=== PATIENT | male | born 1945 | race Caucasian/White ===

== ENCOUNTER 2018-06-15 14:42 | Inpatient (IN) ==
[2018-06-15] MEDS ORDERED: MORPHINE 4 MG/1 ML VIAL IV STA (15:39)
[2018-06-15] MEDS ORDERED: FUROSEMIDE 100 MG/10 ML VIAL IV STA (15:39)
[2018-06-15] MEDS ORDERED: CLINDAMYCIN INJ 600 MG in PREMIX 1 EACH IV STA (15:39)
[2018-06-15] MEDS ORDERED: methylPREDNISolone SOD SUC 125 MG/2 ML VIAL IV STA (15:39)
[2018-06-15] MEDS ORDERED: ONDANSETRON 4 MG/2 ML VIAL IV STA (15:39)
[2018-06-15] MEDS ORDERED: ALBUTEROL NEB SOLN 5 MG/ML 20 ML/BOTTLE RESP TX SCH (16:00)
[2018-06-15 16:06] LABS: ABG Base Excess -0.4 MMOL/L (-2.5-2.5); ABG Oxygen Saturation 97.4 % (95-100); ABG PCO2 38.6 MM HG (35-48); ABG PH 7.403 (7.35-7.45)
[2018-06-15 16:25] LABS: Basophils % 0.4 % (0.0-0.8); Eosinophils % 10.6 % (0.00-10.9); Hemoglobin 12.6 GM/DL (14.0-18.0); Immature Granulocytes % 0.3 %; Immature Granulocytes Absolute 0.03 #; Lymphocytes # 0.9 10*3/uL (1.4-4.0); Lymphocytes % 9.6 % (21.2-54.2); Mean Corpuscular HGB Conc 30.7 GM/DL (32-36); Mean Corpuscular Hemoglobin 31 PG (27-34); Mean Platelet Volume 9.3 FL (9.6-12.0); Monocytes # 0.9 10*3/uL (0.11-0.8); Neutrophils # 6.6 10*3/uL (1.4-7.4); Neutrophils % 70.1 % (38.7-73.9); Platelet Count 324 T/CUMM (130-400); Red Blood Count 4.06 MC/CUMM (3.8-5.5); Red Cell Distribution Width 14.3 % (9.3-17.3); White Blood Count 9.5 T/CUMM (4-12)
[2018-06-15 16:44] LABS: Alanine Aminotransferase 50 U/L (16-61); Albumin 3.1 G/DL (3.4-5.0); Alkaline Phosphatase 66 U/L (45-117); Aspartate Amino Transferase 53 U/L (0-37); Blood Urea Nitrogen 13 MG/DL (7-18); Calcium 8.4 MG/DL (8.5-10.1); Glucose 114 MG/DL (74-106); Osmolality,Calculated 281.3 MOS/KG (273-304); Potassium 3.8 MMOL/L (3.5-5.1); Sodium 141 MMOL/L (136-145); Total Protein 8.2 G/DL (6.4-8.3); Troponin I < 0.015 NG/ML (0.00-0.045)
[2018-06-15 16:47] LABS: PT Patient Result 10.9 SECS
[2018-06-15] MEDS ORDERED: guaiFENesin/DM ER 600-30 MG TABLET PO PRN (18:05)
[2018-06-15] MEDS ORDERED: NITROGLYCERIN SL 0.4 MG TABLET SL PRN (18:10)
[2018-06-15] MEDS: ALBUTEROL/IPRATROPIUM 3 ML NEB RESP TX SCH (19:55)
[2018-06-15] MEDS: PERMETHRIN 5% CREAM 60 GM TUBE TOP SCH (20:36)
[2018-06-15] MEDS: PERMETHRIN 1% LOTION 59 ML BOTTLE TOP SCH (20:36)
[2018-06-15] MEDS: ISOSORBIDE MONONITRATE 30 MG TABLET PO SCH (20:37)
[2018-06-15] MEDS: ENOXAPARIN 40 MG/0.4 ML SYRINGE SUBCUT SCH (20:39)
[2018-06-15] MEDS: MORPHINE 4 MG/1 ML VIAL IV PRN (20:58)
[2018-06-15] MEDS: ceFAZolin 1,000 MG in SYRINGE 1 EACH IV SCH (20:58)
[2018-06-15] MEDS ORDERED: OSELTAMIVIR 75 MG CAPSULE PO SCH (21:00)
[2018-06-16] MEDS: ALBUTEROL/IPRATROPIUM 3 ML NEB RESP TX SCH ×4 (00:58→20:32)
[2018-06-16] MEDS: ceFAZolin 1,000 MG in SYRINGE 1 EACH IV SCH ×3 (03:55→20:45)
[2018-06-16 06:00] LABS: Basophils % 0.1 % (0.0-0.8); Hematocrit 38.1 VOL% (42.0-52.0); Hemoglobin 11.7 GM/DL (14.0-18.0); Immature Granulocytes % 0.4 %; Immature Granulocytes Absolute 0.03 #; Lymphocytes # 0.5 10*3/uL (1.4-4.0); Lymphocytes % 6.7 % (21.2-54.2); Mean Corpuscular HGB Conc 30.7 GM/DL (32-36); Mean Corpuscular Hemoglobin 31 PG (27-34); Mean Corpuscular Volume 100.5 FL (87-102); Mean Platelet Volume 9.4 FL (9.6-12.0); Monocytes # 0.2 10*3/uL (0.11-0.8); Neutrophils # 6.8 10*3/uL (1.4-7.4); Neutrophils % 89.8 % (38.7-73.9); Platelet Count 292 T/CUMM (130-400); Red Blood Count 3.79 MC/CUMM (3.8-5.5); Red Cell Distribution Width 14.1 % (9.3-17.3); White Blood Count 7.6 T/CUMM (4-12)
[2018-06-16 06:21] LABS: Blood Urea Nitrogen 15 MG/DL (7-18); Glucose 210 MG/DL (74-106); Potassium 4.2 MMOL/L (3.5-5.1); Sodium 136 MMOL/L (136-145); Troponin I < 0.015 NG/ML (0.00-0.045)
[2018-06-16 06:27] LABS: Risk Ratio 3.05; Thyroid Stimulating Hormone 1.12 uIU/ml (0.358-3.74); VLDL CHOLESTEROL 16.4 MG/DL
[2018-06-16] MEDS ORDERED: FUROSEMIDE 40 MG/4 ML VIAL IV SCH (08:00)
[2018-06-16] MEDS ORDERED: amLODIPine 10 MG TABLET PO SCH (09:00)
[2018-06-16] MEDS: ISOSORBIDE MONONITRATE 30 MG TABLET PO SCH ×2 (10:01→20:45)
[2018-06-16] MEDS: PERMETHRIN 5% CREAM 60 GM TUBE TOP SCH (10:01)
[2018-06-16] MEDS: ASPIRIN EC 81 MG TABLET PO SCH (10:01)
[2018-06-16] MEDS: MULTIVITAMIN (CENTRUM) TABLET PO SCH (10:01)
[2018-06-16] MEDS: POTASSIUM CHLORIDE 8 MEQ CAPSULE PO SCH (10:02)
[2018-06-16] MEDS: TAMSULOSIN 0.4 MG CAPSULE PO SCH (10:02)
[2018-06-16] MEDS: PERMETHRIN 1% LOTION 59 ML BOTTLE TOP SCH (10:03)
[2018-06-16] MEDS ORDERED: DEXTROSE 50% 25 GM/50 ML VIAL IV PRN (11:23)
[2018-06-16] MEDS ORDERED: GLUCAGON 1 MG VIAL IM PRN (11:23)
[2018-06-16] MEDS: INSULIN LISPRO 100 UNIT/ML SUBCUT SCH ×3 (12:32→20:46)
[2018-06-16] MEDS: SPIRONOLACTONE 25 MG TABLET PO SCH (15:21)
[2018-06-16] MEDS: ENOXAPARIN 40 MG/0.4 ML SYRINGE SUBCUT SCH (20:45)
[2018-06-17] MEDS: ALBUTEROL/IPRATROPIUM 3 ML NEB RESP TX SCH ×4 (00:37→19:45)
[2018-06-17] MEDS: MORPHINE 4 MG/1 ML VIAL IV PRN ×3 (01:31→23:15)
[2018-06-17 04:51] LABS: Basophils % 0.3 % (0.0-0.8); Eosinophils # 0.2 10*3/uL (0.0-0.87); Eosinophils % 2.3 % (0.00-10.9); Hematocrit 35.7 VOL% (42.0-52.0); Hemoglobin 11.3 GM/DL (14.0-18.0); Immature Granulocytes % 0.4 %; Immature Granulocytes Absolute 0.04 #; Lymphocytes # 1.1 10*3/uL (1.4-4.0); Lymphocytes % 11.9 % (21.2-54.2); Mean Corpuscular HGB Conc 31.7 GM/DL (32-36); Mean Corpuscular Hemoglobin 32 PG (27-34); Mean Corpuscular Volume 100.3 FL (87-102); Mean Platelet Volume 9.5 FL (9.6-12.0); Monocytes # 0.9 10*3/uL (0.11-0.8); Neutrophils # 6.7 10*3/uL (1.4-7.4); Neutrophils % 75.1 % (38.7-73.9); Platelet Count 282 T/CUMM (130-400); Red Blood Count 3.56 MC/CUMM (3.8-5.5); Red Cell Distribution Width 14.1 % (9.3-17.3)
[2018-06-17] MEDS: ceFAZolin 1,000 MG in SYRINGE 1 EACH IV SCH ×3 (05:03→20:59)
[2018-06-17 05:17] LABS: Calcium 8.2 MG/DL (8.5-10.1); Osmolality,Calculated 284.4 MOS/KG (273-304); Potassium 3.3 MMOL/L (3.5-5.1)
[2018-06-17] MEDS: INSULIN LISPRO 100 UNIT/ML SUBCUT SCH ×4 (08:47→21:00)
[2018-06-17] MEDS: FUROSEMIDE 40 MG/4 ML VIAL IV SCH (09:09)
[2018-06-17] MEDS: ASPIRIN EC 81 MG TABLET PO SCH (09:11)
[2018-06-17] MEDS: TAMSULOSIN 0.4 MG CAPSULE PO SCH (09:11)
[2018-06-17] MEDS: ISOSORBIDE MONONITRATE 30 MG TABLET PO SCH ×2 (09:11→21:00)
[2018-06-17] MEDS: SPIRONOLACTONE 25 MG TABLET PO SCH (09:11)
[2018-06-17] MEDS: MULTIVITAMIN (CENTRUM) TABLET PO SCH (09:11)
[2018-06-17] MEDS: POTASSIUM CHLORIDE 8 MEQ CAPSULE PO SCH (09:12)
[2018-06-17] MEDS: LISINOPRIL/HCTZ 10-12.5 MG TABLET PO SCH (09:13)
[2018-06-17] MEDS: ENOXAPARIN 40 MG/0.4 ML SYRINGE SUBCUT SCH (20:59)
[2018-06-17 21:58] LABS: Apearance,Urine CLEAR (Clear); Bacteria,Urine Occasional /HPF (Few); Bilirubin,Urine Negative (Negative); Blood, Urine Small mg/dL (Negative); Glucose,Urine (UA) Negative (Negative); Ketones,Urine Negative (Negative); Mucus,Urine Occasional /LPF (Occasional); Nitrite,Urine Negative (Negative); Protein,Urine Negative; RBC,Urine 1 /HPF (0-4); Uric Acid Crystals,Urine Occasional /HPF (<1); Urine Color Yellow (Yellow); Urine Specific Gravity 1.014 (1.001-1.035); Urine Urobilinogen < 2.0 EU/DL (0.2-1.0); WBC,Urine 1 /HPF (0-6)
[2018-06-18] MEDS: diphenhydrAMINE CAP 25 MG CAPSULE PO PRN ×2 (00:27→09:05)
[2018-06-18] MEDS: ALBUTEROL/IPRATROPIUM 3 ML NEB RESP TX SCH ×4 (00:58→19:19)
[2018-06-18] MEDS: ceFAZolin 1,000 MG in SYRINGE 1 EACH IV SCH ×3 (04:55→22:11)
[2018-06-18 05:53] LABS: Basophils # 0.1 10*3/uL (0.0-0.2); Basophils % 0.6 % (0.0-0.8); Eosinophils # 0.9 10*3/uL (0.0-0.87); Eosinophils % 10.9 % (0.00-10.9); Hematocrit 43.3 VOL% (42.0-52.0); Hemoglobin 13.2 GM/DL (14.0-18.0); Immature Granulocytes % 0.4 %; Immature Granulocytes Absolute 0.03 #; Lymphocytes # 1.3 10*3/uL (1.4-4.0); Lymphocytes % 14.8 % (21.2-54.2); Mean Corpuscular HGB Conc 30.5 GM/DL (32-36); Mean Corpuscular Hemoglobin 31 PG (27-34); Mean Corpuscular Volume 100.9 FL (87-102); Mean Platelet Volume 9.4 FL (9.6-12.0); Monocytes % 11.2 % (1.7-12.7); Neutrophils # 5.3 10*3/uL (1.4-7.4); Neutrophils % 62.1 % (38.7-73.9); Platelet Count 323 T/CUMM (130-400); Red Blood Count 4.29 MC/CUMM (3.8-5.5); Red Cell Distribution Width 13.9 % (9.3-17.3); White Blood Count 8.5 T/CUMM (4-12)
[2018-06-18 06:08] LABS: Calcium 8.5 MG/DL (8.5-10.1); Osmolality,Calculated 278.8 MOS/KG (273-304); Potassium 3.3 MMOL/L (3.5-5.1)
[2018-06-18] MEDS: INSULIN LISPRO 100 UNIT/ML SUBCUT SCH ×4 (07:42→22:12)
[2018-06-18] MEDS ORDERED: POTASSIUM CHLORIDE 20 MEQ TABLET PO SCH (09:00)
[2018-06-18] MEDS: MORPHINE 4 MG/1 ML VIAL IV PRN ×2 (09:01→13:24)
[2018-06-18] MEDS: LISINOPRIL/HCTZ 10-12.5 MG TABLET PO SCH (09:04)
[2018-06-18] MEDS: SPIRONOLACTONE 25 MG TABLET PO SCH (09:04)
[2018-06-18] MEDS: ISOSORBIDE MONONITRATE 30 MG TABLET PO SCH ×2 (09:04→22:12)
[2018-06-18] MEDS: ASPIRIN EC 81 MG TABLET PO SCH (09:04)
[2018-06-18] MEDS: POTASSIUM CHLORIDE 8 MEQ CAPSULE PO SCH (09:04)
[2018-06-18] MEDS: TAMSULOSIN 0.4 MG CAPSULE PO SCH (09:04)
[2018-06-18] MEDS: MULTIVITAMIN (CENTRUM) TABLET PO SCH (09:04)
[2018-06-18] MEDS: FUROSEMIDE 40 MG/4 ML VIAL IV SCH (09:11)
[2018-06-18] MEDS: POTASSIUM CHLORIDE 20 MEQ TABLET PO SCH (12:07)
[2018-06-18] MEDS: SKIN HEALING OINT (AQUAPHOR) 50 GM TUBE TOP SCH ×2 (12:07→22:11)
[2018-06-18] MEDS: diphenhydrAMINE 2% CREAM 28 GM TUBE TOP SCH ×2 (16:01→22:11)
[2018-06-18] MEDS: ENOXAPARIN 40 MG/0.4 ML SYRINGE SUBCUT SCH (22:12)
[2018-06-19] MEDS: ALBUTEROL/IPRATROPIUM 3 ML NEB RESP TX SCH ×3 (00:31→14:05)
[2018-06-19] MEDS: ceFAZolin 1,000 MG in SYRINGE 1 EACH IV SCH ×2 (04:28→11:58)
[2018-06-19] MEDS: MORPHINE 4 MG/1 ML VIAL IV PRN (05:00)
[2018-06-19] MEDS: diphenhydrAMINE CAP 25 MG CAPSULE PO PRN (05:05)
[2018-06-19 05:59] LABS: Basophils # 0.1 10*3/uL (0.0-0.2); Basophils % 0.8 % (0.0-0.8); Eosinophils # 0.9 10*3/uL (0.0-0.87); Hematocrit 39.8 VOL% (42.0-52.0); Hemoglobin 12.4 GM/DL (14.0-18.0); Immature Granulocytes % 0.5 %; Immature Granulocytes Absolute 0.03 #; Lymphocytes % 15.3 % (21.2-54.2); Mean Corpuscular HGB Conc 31.2 GM/DL (32-36); Mean Corpuscular Hemoglobin 32 PG (27-34); Mean Platelet Volume 9.8 FL (9.6-12.0); Monocytes # 0.8 10*3/uL (0.11-0.8); Monocytes % 11.5 % (1.7-12.7); Neutrophils # 3.9 10*3/uL (1.4-7.4); Neutrophils % 58.9 % (38.7-73.9); Platelet Count 287 T/CUMM (130-400); Red Blood Count 3.94 MC/CUMM (3.8-5.5); Red Cell Distribution Width 13.9 % (9.3-17.3); White Blood Count 6.6 T/CUMM (4-12)
[2018-06-19 06:11] LABS: Calcium 8.1 MG/DL (8.5-10.1); Osmolality,Calculated 283.7 MOS/KG (273-304)
[2018-06-19 06:50] LABS: Anisocytosis 1+; Band Neutrophils 2 % (0-10); Eosinophils 17 % (0-10); Lymphocytes 17 % (20-55); Macrocytosis 1+; Platelet Estimate Normal; Polychromasia 1+; Segmented Neutrophils 53 % (50-85); Total Cells Counted 100
[2018-06-19] MEDS: INSULIN LISPRO 100 UNIT/ML SUBCUT SCH ×2 (07:31→11:58)
[2018-06-19] MEDS: POTASSIUM CHLORIDE 20 MEQ TABLET PO SCH (08:13)
[2018-06-19] MEDS: ISOSORBIDE MONONITRATE 30 MG TABLET PO SCH (08:13)
[2018-06-19] MEDS: ASPIRIN EC 81 MG TABLET PO SCH (08:13)
[2018-06-19] MEDS: SPIRONOLACTONE 25 MG TABLET PO SCH (08:13)
[2018-06-19] MEDS: FUROSEMIDE 40 MG/4 ML VIAL IV SCH (08:13)
[2018-06-19] MEDS: TAMSULOSIN 0.4 MG CAPSULE PO SCH (08:13)
[2018-06-19] MEDS: LISINOPRIL/HCTZ 10-12.5 MG TABLET PO SCH (08:13)
[2018-06-19] MEDS: MULTIVITAMIN (CENTRUM) TABLET PO SCH (08:13)
[2018-06-19] MEDS: SKIN HEALING OINT (AQUAPHOR) 50 GM TUBE TOP SCH (08:14)
[2018-06-19] MEDS: diphenhydrAMINE 2% CREAM 28 GM TUBE TOP SCH (08:14)
[2018-06-19 10:55] VITALS: BP 110/76
== END 2018-06-19 14:05 | disposition swing bed (61) | DRG 292 ==
LOC: N.ED 14:42 → N.EDINP 17:59 → SUATTDRO 17:59 → N.EDINP 19:06 → N.TELES 19:41 → N.5E 06-16 15:07
PROVIDERS: ADMIT Internal Medicine; ATTEND Hospitalist

== ENCOUNTER 2018-08-03 11:56 | Inpatient (IN) ==
[2018-08-03 13:06] LABS: Basophils % 0.4 % (0.0-0.8); Eosinophils # 0.2 10*3/uL (0.0-0.87); Eosinophils % 1.7 % (0.00-10.9); Hematocrit 46.1 VOL% (42.0-52.0); Hemoglobin 14.4 GM/DL (14.0-18.0); Immature Granulocytes % 0.6 %; Immature Granulocytes Absolute 0.06 #; Lymphocytes # 0.9 10*3/uL (1.4-4.0); Lymphocytes % 8.8 % (21.2-54.2); Mean Corpuscular HGB Conc 31.2 GM/DL (32-36); Mean Corpuscular Hemoglobin 31 PG (27-34); Mean Corpuscular Volume 99.1 FL (87-102); Mean Platelet Volume 9.3 FL (9.6-12.0); Monocytes # 0.8 10*3/uL (0.11-0.8); Monocytes % 7.4 % (1.7-12.7); Neutrophils # 8.4 10*3/uL (1.4-7.4); Neutrophils % 81.1 % (38.7-73.9); Platelet Count 358 T/CUMM (130-400); Red Blood Count 4.65 MC/CUMM (3.8-5.5); Red Cell Distribution Width 13.5 % (9.3-17.3); White Blood Count 10.3 T/CUMM (4-12)
[2018-08-03] MEDS ORDERED: ONDANSETRON 4 MG/2 ML VIAL ONE (13:29)
[2018-08-03] MEDS ORDERED: FUROSEMIDE 100 MG/10 ML VIAL ONE (13:30)
[2018-08-03] MEDS ORDERED: MORPHINE 4 MG/1 ML VIAL ONE (13:30)
[2018-08-03 13:31] LABS: Lactic Acid 2.1 MMOL/L (0.4-2.0)
[2018-08-03 13:34] LABS: Alanine Aminotransferase 35 U/L (16-61); Albumin 3.2 G/DL (3.4-5.0); Alkaline Phosphatase 79 U/L (45-117); Aspartate Amino Transferase 35 U/L (0-37); Blood Urea Nitrogen 13 MG/DL (7-18); Calcium 8.5 MG/DL (8.5-10.1); Glucose 131 MG/DL (74-106); Osmolality,Calculated 280.4 MOS/KG (273-304); Potassium 4.1 MMOL/L (3.5-5.1); Sodium 140 MMOL/L (136-145); Total Protein 9.2 G/DL (6.4-8.3)
[2018-08-03] MEDS ORDERED: MORPHINE 4 MG/1 ML VIAL IV STA ×2 (14:10→17:02)
[2018-08-03] MEDS ORDERED: FUROSEMIDE 40 MG/4 ML VIAL IV STA (14:10)
[2018-08-03] MEDS ORDERED: ONDANSETRON 4 MG/2 ML VIAL IV STA (14:11)
[2018-08-03] MEDS ORDERED: DILTIAZEM 50 MG/10 ML VIAL IV STA ×2 (14:27→15:59)
[2018-08-03] MEDS ORDERED: DILTIAZEM INJ 100 MG in SODIUM CHLORIDE 0.9% 100 ML IV SCH (14:30)
[2018-08-03] MEDS ORDERED: DILTIAZEM 25 MG/5 ML VIAL IV ONE ×2 (14:55→15:55)
[2018-08-03] MEDS ORDERED: ONDANSETRON 4 MG/2 ML VIAL IV PRN (16:05)
[2018-08-03] MEDS ORDERED: ALBUTEROL/IPRATROPIUM 3 ML NEB RESP TX PRN (16:11)
[2018-08-03] MEDS: CLINDAMYCIN INJ 900 MG in PREMIX 1 EACH IV SCH (17:14)
[2018-08-03] MEDS ORDERED: PERMETHRIN 5% CREAM 60 GM TUBE TOP ONE (18:00)
[2018-08-03] MEDS: ACETAMINOPHEN 325 MG TABLET PO PRN (20:20)
[2018-08-03] MEDS ORDERED: dilTIAZem Drip 125 MG/125 ML PREMIX IV SCH (20:30)
[2018-08-03] MEDS: APIXABAN 5 MG TABLET PO SCH (22:36)
[2018-08-04] MEDS: CLINDAMYCIN INJ 900 MG in PREMIX 1 EACH IV SCH ×3 (03:31→17:33)
[2018-08-04 05:03] LABS: Basophils % 0.4 % (0.0-0.8); Eosinophils # 0.1 10*3/uL (0.0-0.87); Eosinophils % 1.2 % (0.00-10.9); Hematocrit 38.4 VOL% (42.0-52.0); Hemoglobin 11.9 GM/DL (14.0-18.0); Immature Granulocytes % 0.7 %; Immature Granulocytes Absolute 0.07 #; Lymphocytes # 0.8 10*3/uL (1.4-4.0); Lymphocytes % 8.2 % (21.2-54.2); Mean Corpuscular Hemoglobin 31 PG (27-34); Mean Corpuscular Volume 98.5 FL (87-102); Mean Platelet Volume 9.5 FL (9.6-12.0); Monocytes % 10.3 % (1.7-12.7); Neutrophils % 79.2 % (38.7-73.9); Platelet Count 327 T/CUMM (130-400); Red Cell Distribution Width 13.3 % (9.3-17.3)
[2018-08-04 05:36] LABS: Calcium 7.9 MG/DL (8.5-10.1); Osmolality,Calculated 276.8 MOS/KG (273-304); Potassium 3.8 MMOL/L (3.5-5.1); Risk Ratio 3.04; VLDL CHOLESTEROL 15.6 MG/DL
[2018-08-04] MEDS ORDERED: diphenhydrAMINE CAP 25 MG CAPSULE PO PRN (06:59)
[2018-08-04] MEDS ORDERED: LORazepam 2 MG/1 ML VIAL IV PRN (08:04)
[2018-08-04] MEDS ORDERED: PERMETHRIN 5% CREAM 60 GM TUBE TOP SCH (09:00)
[2018-08-04] MEDS: FUROSEMIDE 40 MG/4 ML VIAL IV SCH ×2 (13:55→16:12)
[2018-08-04] MEDS: MULTIVITAMIN (CENTRUM) TABLET PO SCH (13:56)
[2018-08-04] MEDS: APIXABAN 5 MG TABLET PO SCH (14:05)
[2018-08-04] MEDS: FOLIC ACID 1 MG TABLET PO SCH (15:41)
[2018-08-04] MEDS: PANTOPRAZOLE 40 MG TABLET PO SCH (15:41)
[2018-08-04] MEDS: THIAMINE 100 MG TABLET PO SCH (15:41)
[2018-08-04] MEDS: BACITRACIN OINT 0.9 GM PACK TOP SCH (15:42)
[2018-08-04] MEDS: GABAPENTIN 100 MG CAPSULE PO SCH ×2 (15:42→22:00)
[2018-08-04] MEDS: DESITIN 4OZ/NYSTATIN 15 GRAM MIXTURE PASTE TOP SCH ×2 (15:42→23:15)
[2018-08-05] MEDS: CLINDAMYCIN INJ 900 MG in PREMIX 1 EACH IV SCH ×3 (00:55→16:58)
[2018-08-05 05:17] LABS: Basophils % 0.5 % (0.0-0.8); Eosinophils # 0.1 10*3/uL (0.0-0.87); Eosinophils % 1.5 % (0.00-10.9); Hematocrit 39.9 VOL% (42.0-52.0); Hemoglobin 12.5 GM/DL (14.0-18.0); Immature Granulocytes % 0.7 %; Immature Granulocytes Absolute 0.06 #; Lymphocytes # 0.7 10*3/uL (1.4-4.0); Lymphocytes % 8.3 % (21.2-54.2); Mean Corpuscular HGB Conc 31.3 GM/DL (32-36); Mean Corpuscular Hemoglobin 31 PG (27-34); Mean Corpuscular Volume 97.6 FL (87-102); Mean Platelet Volume 9.4 FL (9.6-12.0); Monocytes # 0.7 10*3/uL (0.11-0.8); Monocytes % 8.5 % (1.7-12.7); Neutrophils # 6.6 10*3/uL (1.4-7.4); Neutrophils % 80.5 % (38.7-73.9); Platelet Count 341 T/CUMM (130-400); Red Blood Count 4.09 MC/CUMM (3.8-5.5); Red Cell Distribution Width 13.5 % (9.3-17.3); White Blood Count 8.2 T/CUMM (4-12)
[2018-08-05 05:28] LABS: Osmolality,Calculated 279.7 MOS/KG (273-304); Potassium 3.2 MMOL/L (3.5-5.1)
[2018-08-05] MEDS ORDERED: POTASSIUM CHLORIDE 20 MEQ TABLET PO PRN ×2 (06:16→06:26)
[2018-08-05] MEDS ORDERED: POTASSIUM CHLORIDE 20 MEQ TABLET PO ONE (07:30)
[2018-08-05] MEDS: FUROSEMIDE 40 MG/4 ML VIAL IV SCH (09:01)
[2018-08-05] MEDS: FOLIC ACID 1 MG TABLET PO SCH (10:19)
[2018-08-05] MEDS: PANTOPRAZOLE 40 MG TABLET PO SCH (10:19)
[2018-08-05] MEDS: MULTIVITAMIN (CENTRUM) TABLET PO SCH (10:19)
[2018-08-05] MEDS: GABAPENTIN 100 MG CAPSULE PO SCH ×2 (10:19→21:07)
[2018-08-05] MEDS: DESITIN 4OZ/NYSTATIN 15 GRAM MIXTURE PASTE TOP SCH ×2 (10:20→21:07)
[2018-08-05] MEDS: THIAMINE 100 MG TABLET PO SCH (10:20)
[2018-08-05] MEDS: BACITRACIN OINT 0.9 GM PACK TOP SCH (10:29)
[2018-08-05] MEDS: ACETAMINOPHEN 325 MG TABLET PO PRN (21:07)
[2018-08-06] MEDS: CLINDAMYCIN INJ 900 MG in PREMIX 1 EACH IV SCH ×2 (01:15→09:28)
[2018-08-06] MEDS: ACETAMINOPHEN 325 MG TABLET PO PRN (01:50)
[2018-08-06] MEDS ORDERED: NITROGLYCERIN SL 0.4 MG TABLET SL PRN (07:24)
[2018-08-06 08:09] LABS: Calcium 8.2 MG/DL (8.5-10.1); Osmolality,Calculated 278.7 MOS/KG (273-304); Potassium 3.5 MMOL/L (3.5-5.1)
[2018-08-06] MEDS ORDERED: MULTIVITAMIN (CENTRUM) TABLET PO SCH (09:00)
[2018-08-06] MEDS ORDERED: FUROSEMIDE 40 MG TABLET PO SCH (09:00)
[2018-08-06] MEDS ORDERED: ISOSORBIDE MONONITRATE 30 MG TABLET PO SCH (09:00)
[2018-08-06] MEDS ORDERED: POTASSIUM CHLORIDE 8 MEQ CAPSULE PO SCH (09:00)
[2018-08-06] MEDS ORDERED: LISINOPRIL/HCTZ 10-12.5 MG TABLET PO SCH (09:00)
[2018-08-06] MEDS ORDERED: SPIRONOLACTONE 25 MG TABLET PO SCH (09:00)
[2018-08-06] MEDS ORDERED: TAMSULOSIN 0.4 MG CAPSULE PO SCH (09:00)
[2018-08-06] MEDS ORDERED: ASPIRIN EC 81 MG TABLET PO SCH (09:00)
[2018-08-06] MEDS: FOLIC ACID 1 MG TABLET PO SCH (09:12)
[2018-08-06] MEDS: MULTIVITAMIN (CENTRUM) TABLET PO SCH (09:12)
[2018-08-06] MEDS: PANTOPRAZOLE 40 MG TABLET PO SCH (09:12)
[2018-08-06] MEDS: GABAPENTIN 100 MG CAPSULE PO SCH (09:13)
[2018-08-06] MEDS: THIAMINE 100 MG TABLET PO SCH (09:13)
[2018-08-06] MEDS: BACITRACIN OINT 0.9 GM PACK TOP SCH (09:23)
[2018-08-06] MEDS: DESITIN 4OZ/NYSTATIN 15 GRAM MIXTURE PASTE TOP SCH (09:32)
[2018-08-06] MEDS ORDERED: PERMETHRIN 5% CREAM 60 GM TUBE TOP ONE (12:15)
[2018-08-06 12:20] VITALS: BP 98/65
[2018-08-06] MEDS ORDERED: IVERMECTIN 3 MG TABLET PO SCH (12:30)
== END 2018-08-06 16:20 | DRG 309 ==
LOC: EDUNIT# → EDBD → N.ED 11:56 → N.EDINP 16:00 → SUATTDRO 16:00 → N.TELES 17:39
PROVIDERS: ADMIT Internal Medicine; ATTEND Internal Medicine Infectious Disease

== ENCOUNTER 2018-10-17 01:28 | Inpatient (IN) ==
[2018-10-17] MEDS ORDERED: ONDANSETRON 4 MG/2 ML VIAL IV STA (02:35)
[2018-10-17] MEDS ORDERED: ALBUTEROL/IPRATROPIUM 3 ML NEB RESP TX STA (02:35)
[2018-10-17] MEDS ORDERED: MORPHINE 4 MG/1 ML VIAL IV STA (02:35)
[2018-10-17 02:44] LABS: Basophils % 0.4 % (0.0-0.8); Eosinophils # 0.1 10*3/uL (0.0-0.87); Eosinophils % 1.3 % (0.00-10.9); Hematocrit 42.2 VOL% (42.0-52.0); Hemoglobin 13.3 GM/DL (14.0-18.0); Immature Granulocytes % 0.3 %; Immature Granulocytes Absolute 0.03 #; Lymphocytes # 0.7 10*3/uL (1.4-4.0); Lymphocytes % 6.5 % (21.2-54.2); Mean Corpuscular HGB Conc 31.5 GM/DL (32-36); Mean Corpuscular Hemoglobin 31 PG (27-34); Mean Corpuscular Volume 97.5 FL (87-102); Mean Platelet Volume 9.9 FL (9.6-12.0); Monocytes # 0.8 10*3/uL (0.11-0.8); Monocytes % 7.8 % (1.7-12.7); Neutrophils # 8.5 10*3/uL (1.4-7.4); Neutrophils % 83.7 % (38.7-73.9); Platelet Count 320 T/CUMM (130-400); Red Blood Count 4.33 MC/CUMM (3.8-5.5); Red Cell Distribution Width 13.8 % (9.3-17.3); White Blood Count 10.2 T/CUMM (4-12)
[2018-10-17 02:52] LABS: INR 1.1; PT Patient Result 11.8 SECS
[2018-10-17 03:04] LABS: ABG Base Excess 0.7 MMOL/L (-2.5-2.5); ABG HCO3 24.9 MMOL/L (20-26); ABG Oxygen Saturation 94.6 % (95-100); ABG PCO2 44.4 MM HG (35-48); ABG PH 7.379 (7.35-7.45); ABG PO2 75.6 MM HG (80-95); ABG TCO2 22.8 MMOL/L (23-27)
[2018-10-17 03:06] LABS: Albumin 2.9 G/DL (3.4-5.0); Bilirubin,Total 0.6 MG/DL (0.2-1.0); Calcium 8.2 MG/DL (8.5-10.1); Osmolality,Calculated 275.7 MOS/KG (273-304); Potassium 2.7 MMOL/L (3.5-5.1); Total Protein 7.7 G/DL (6.4-8.3)
[2018-10-17 04:08] LABS: Apearance,Urine CLEAR (Clear); Bacteria,Urine Occasional /HPF (Few); Bilirubin,Urine Negative (Negative); Blood, Urine Small mg/dL (Negative); Glucose,Urine (UA) Negative (Negative); Hyaline Casts,Urine 4 /LPF (0-3); Ketones,Urine 80 mg/dL (Negative); Mucus,Urine Occasional /LPF (Occasional); Nitrite,Urine Negative (Negative); Protein,Urine 100 MG/DL; RBC,Urine 3 /HPF (0-4); Squamous Epithelial Cell,Urine Occasional /HPF (0-10); Urine Color Yellow (Yellow); Urine Specific Gravity 1.023 (1.001-1.035); WBC,Urine 4 /HPF (0-6)
[2018-10-17] MEDS ORDERED: NICOTINE 21 MG/24 HR PATCH TRANSDERM PRN (04:32)
[2018-10-17] MEDS ORDERED: ACETAMINOPHEN 325 MG TABLET PO PRN (04:32)
[2018-10-17] MEDS ORDERED: GLUCAGON 1 MG VIAL IM PRN (04:32)
[2018-10-17] MEDS ORDERED: BISACODYL 5 MG TABLET PO PRN (04:32)
[2018-10-17] MEDS ORDERED: DEXTROSE 50% 25 GM/50 ML SYRINGE IV PRN (04:32)
[2018-10-17] MEDS ORDERED: hydrALAZINE 20 MG/1 ML VIAL IV PRN (04:32)
[2018-10-17] MEDS ORDERED: ONDANSETRON 4 MG/2 ML VIAL IV PRN (04:32)
[2018-10-17] MEDS ORDERED: guaiFENesin/DM ER 600-30 MG TABLET PO PRN (04:32)
[2018-10-17] MEDS ORDERED: ALBUTEROL 2.5 MG/3 ML NEB RESP TX PRN (04:32)
[2018-10-17] MEDS: methylPREDNISolone SOD SUC 125 MG/2 ML VIAL IV SCH ×3 (06:25→20:29)
[2018-10-17] MEDS: MORPHINE 4 MG/1 ML VIAL IV PRN ×3 (06:27→23:49)
[2018-10-17] MEDS: ALBUTEROL/IPRATROPIUM 3 ML NEB RESP TX SCH ×5 (07:28→22:27)
[2018-10-17] MEDS ORDERED: AZITHROMYCIN INJ 500 MG in SODIUM CHLORIDE 0.9% 250 ML IV SCH (07:30)
[2018-10-17] MEDS ORDERED: cefTRIAXone 1,000 MG in SYRINGE 1 EACH IV SCH (07:30)
[2018-10-17 08:09] LABS: Calcium 8.4 MG/DL (8.5-10.1); Osmolality,Calculated 276.7 MOS/KG (273-304); Potassium 2.8 MMOL/L (3.5-5.1)
[2018-10-17] MEDS ORDERED: POTASSIUM CHLORIDE 20 MEQ/15 ML UDCUP PO ONE (08:23)
[2018-10-17] MEDS: INSULIN REGULAR 100 UNIT/ML SUBCUT SCH ×4 (09:56→20:30)
[2018-10-17] MEDS: PANTOPRAZOLE 40 MG TABLET PO SCH (09:58)
[2018-10-17] MEDS: PIPERACILLIN/TAZOBACTAM 3,375 MG in SODIUM CHLORIDE 0.9% 100 ML IV SCH ×2 (17:39→23:50)
[2018-10-17] MEDS: diphenhydrAMINE CAP 25 MG CAPSULE PO PRN (20:31)
[2018-10-17] MEDS: POTASSIUM CHLORIDE 20 MEQ TABLET PO PRN ×2 (20:31→23:00)
[2018-10-18] MEDS: POTASSIUM CHLORIDE 20 MEQ TABLET PO PRN ×5 (01:05→13:50)
[2018-10-18] MEDS: ALBUTEROL/IPRATROPIUM 3 ML NEB RESP TX SCH ×6 (02:25→22:39)
[2018-10-18] MEDS: methylPREDNISolone SOD SUC 125 MG/2 ML VIAL IV SCH ×3 (04:08→21:33)
[2018-10-18 05:41] LABS: Basophils % 0.1 % (0.0-0.8); Hemoglobin 11.9 GM/DL (14.0-18.0); Immature Granulocytes % 0.9 %; Lymphocytes # 0.5 10*3/uL (1.4-4.0); Mean Corpuscular HGB Conc 31.3 GM/DL (32-36); Mean Corpuscular Hemoglobin 31 PG (27-34); Mean Corpuscular Volume 97.4 FL (87-102); Mean Platelet Volume 10.2 FL (9.6-12.0); Monocytes # 0.5 10*3/uL (0.11-0.8); Monocytes % 4.7 % (1.7-12.7); Neutrophils # 10.4 10*3/uL (1.4-7.4); Neutrophils % 90.3 % (38.7-73.9); Platelet Count 314 T/CUMM (130-400); Red Cell Distribution Width 13.8 % (9.3-17.3); White Blood Count 11.6 T/CUMM (4-12)
[2018-10-18 06:05] LABS: Calcium 8.3 MG/DL (8.5-10.1); Osmolality,Calculated 290.5 MOS/KG (273-304); Potassium 3.4 MMOL/L (3.5-5.1)
[2018-10-18 06:15] LABS: Band Neutrophils 1 % (0-10); Lymphocytes 4 % (20-55); Segmented Neutrophils 92 % (50-85); Total Cells Counted 100
[2018-10-18 06:16] LABS: Hypochromasia 1+
[2018-10-18] MEDS ORDERED: NITROGLYCERIN SL 0.4 MG TABLET SL PRN (07:34)
[2018-10-18] MEDS ORDERED: LOPERAMIDE 2 MG CAPSULE PO PRN (07:34)
[2018-10-18] MEDS ORDERED: NON-FORMULARY MEDICATION (Acetaminophen [Tylenol] 650 MG) PO PRN (07:34)
[2018-10-18] MEDS ORDERED: diphenhydrAMINE 25 MG/10 ML UDCUP PO PRN (07:34)
[2018-10-18] MEDS ORDERED: POTASSIUM CHLORIDE 10 MEQ TABLET PO ONE (07:39)
[2018-10-18] MEDS ORDERED: FUROSEMIDE 40 MG TABLET PO SCH (09:00)
[2018-10-18] MEDS: MORPHINE 4 MG/1 ML VIAL IV PRN ×2 (10:14→21:36)
[2018-10-18] MEDS: INSULIN GLARGINE 100 UNIT/ML SUBCUT SCH ×2 (10:14→21:32)
[2018-10-18] MEDS: TAMSULOSIN 0.4 MG CAPSULE PO SCH (10:15)
[2018-10-18] MEDS: FUROSEMIDE 40 MG/4 ML VIAL IV SCH ×2 (10:15→16:26)
[2018-10-18] MEDS: INSULIN REGULAR 100 UNIT/ML SUBCUT SCH ×4 (10:15→21:32)
[2018-10-18] MEDS: ASPIRIN EC 81 MG TABLET PO SCH (10:16)
[2018-10-18] MEDS: GABAPENTIN 100 MG CAPSULE PO SCH ×2 (10:16→21:39)
[2018-10-18] MEDS: ISOSORBIDE MONONITRATE 30 MG TABLET PO SCH ×2 (10:16→21:31)
[2018-10-18] MEDS: FOLIC ACID 1 MG TABLET PO SCH (10:16)
[2018-10-18] MEDS: THIAMINE 100 MG TABLET PO SCH (10:16)
[2018-10-18] MEDS: PANTOPRAZOLE 40 MG TABLET PO SCH (10:16)
[2018-10-18] MEDS: MULTIVITAMIN (CENTRUM) TABLET PO SCH (10:16)
[2018-10-18] MEDS: SPIRONOLACTONE 25 MG TABLET PO SCH (10:16)
[2018-10-18] MEDS: FAMOTIDINE 20 MG TABLET PO SCH ×2 (10:16→21:32)
[2018-10-18] MEDS: SKIN HEALING OINT (AQUAPHOR) 50 GM TUBE TOP SCH (10:17)
[2018-10-18] MEDS: POTASSIUM CHLORIDE 10 MEQ TABLET PO SCH (10:17)
[2018-10-18] MEDS: BACITRACIN OINT 28.35 GM TUBE TOP SCH (10:17)
[2018-10-18] MEDS: ENOXAPARIN 40 MG/0.4 ML SYRINGE SUBCUT SCH (10:18)
[2018-10-18] MEDS: PIPERACILLIN/TAZOBACTAM 3,375 MG in SODIUM CHLORIDE 0.9% 100 ML IV SCH ×2 (10:18→18:15)
[2018-10-18] MEDS: diphenhydrAMINE CAP 25 MG CAPSULE PO PRN (12:40)
[2018-10-18] MEDS ORDERED: VANCOMYCIN INJ 1,000 MG in SODIUM CHLORIDE 0.9% 250 ML IV ONE (16:00)
[2018-10-18] MEDS ORDERED: PERMETHRIN 5% CREAM 60 GM TUBE TOP ONE (16:27)
[2018-10-18] MEDS: ARFORMOTEROL 15 MCG/2 ML NEB RESP TX SCH (19:08)
[2018-10-18] MEDS ORDERED: INSULIN GLARGINE 100 UNIT/ML SUBCUT SCH (21:00)
[2018-10-19] MEDS: PIPERACILLIN/TAZOBACTAM 3,375 MG in SODIUM CHLORIDE 0.9% 100 ML IV SCH ×3 (01:30→16:30)
[2018-10-19] MEDS: ALBUTEROL/IPRATROPIUM 3 ML NEB RESP TX SCH ×6 (03:01→22:58)
[2018-10-19] MEDS: methylPREDNISolone SOD SUC 125 MG/2 ML VIAL IV SCH ×3 (04:17→22:04)
[2018-10-19 05:16] LABS: Basophils % 0.1 % (0.0-0.8); Hematocrit 36.9 VOL% (42.0-52.0); Hemoglobin 11.4 GM/DL (14.0-18.0); Immature Granulocytes % 0.8 %; Immature Granulocytes Absolute 0.11 #; Lymphocytes # 0.6 10*3/uL (1.4-4.0); Lymphocytes % 4.3 % (21.2-54.2); Mean Corpuscular HGB Conc 30.9 GM/DL (32-36); Mean Corpuscular Hemoglobin 31 PG (27-34); Mean Corpuscular Volume 98.9 FL (87-102); Mean Platelet Volume 10.4 FL (9.6-12.0); Monocytes # 0.7 10*3/uL (0.11-0.8); Monocytes % 5.3 % (1.7-12.7); Neutrophils # 12.3 10*3/uL (1.4-7.4); Neutrophils % 89.5 % (38.7-73.9); Platelet Count 337 T/CUMM (130-400); Red Blood Count 3.73 MC/CUMM (3.8-5.5); White Blood Count 13.8 T/CUMM (4-12)
[2018-10-19 05:37] LABS: Osmolality,Calculated 286.4 MOS/KG (273-304); Potassium 3.3 MMOL/L (3.5-5.1)
[2018-10-19] MEDS: POTASSIUM CHLORIDE 20 MEQ TABLET PO PRN ×3 (05:53→14:03)
[2018-10-19 06:05] LABS: Lymphocytes 5 % (20-55); Platelet Estimate Normal; Polychromasia Few; Segmented Neutrophils 93 % (50-85); Total Cells Counted 100
[2018-10-19] MEDS: ARFORMOTEROL 15 MCG/2 ML NEB RESP TX SCH ×2 (07:25→18:49)
[2018-10-19] MEDS ORDERED: POTASSIUM CHLORIDE 20 MEQ TABLET PO ONE (08:07)
[2018-10-19] MEDS: INSULIN GLARGINE 100 UNIT/ML SUBCUT SCH ×2 (08:18→21:11)
[2018-10-19] MEDS: INSULIN REGULAR 100 UNIT/ML SUBCUT SCH ×4 (08:18→21:20)
[2018-10-19] MEDS: PANTOPRAZOLE 40 MG TABLET PO SCH (08:19)
[2018-10-19] MEDS: ENOXAPARIN 40 MG/0.4 ML SYRINGE SUBCUT SCH (08:19)
[2018-10-19] MEDS: GABAPENTIN 100 MG CAPSULE PO SCH ×2 (08:19→21:10)
[2018-10-19] MEDS: POTASSIUM CHLORIDE 10 MEQ TABLET PO SCH (08:19)
[2018-10-19] MEDS: TAMSULOSIN 0.4 MG CAPSULE PO SCH (08:19)
[2018-10-19] MEDS: FOLIC ACID 1 MG TABLET PO SCH (08:19)
[2018-10-19] MEDS: FAMOTIDINE 20 MG TABLET PO SCH ×2 (08:20→21:10)
[2018-10-19] MEDS: SPIRONOLACTONE 25 MG TABLET PO SCH (08:20)
[2018-10-19] MEDS: ISOSORBIDE MONONITRATE 30 MG TABLET PO SCH ×2 (08:20→21:11)
[2018-10-19] MEDS: MULTIVITAMIN (CENTRUM) TABLET PO SCH (08:20)
[2018-10-19] MEDS: FUROSEMIDE 40 MG/4 ML VIAL IV SCH ×2 (08:20→16:30)
[2018-10-19] MEDS: THIAMINE 100 MG TABLET PO SCH (08:20)
[2018-10-19] MEDS: ASPIRIN EC 81 MG TABLET PO SCH (08:20)
[2018-10-19] MEDS: SKIN HEALING OINT (AQUAPHOR) 50 GM TUBE TOP SCH (08:21)
[2018-10-19] MEDS: BACITRACIN OINT 28.35 GM TUBE TOP SCH (08:21)
[2018-10-19] MEDS: MORPHINE 4 MG/1 ML VIAL IV PRN ×3 (09:34→22:04)
[2018-10-19] MEDS: VANCOMYCIN INJ 2,000 MG in SODIUM CHLORIDE 0.9% 500 ML IV SCH ×2 (12:16→21:15)
[2018-10-20] MEDS: PIPERACILLIN/TAZOBACTAM 3,375 MG in SODIUM CHLORIDE 0.9% 100 ML IV SCH ×3 (01:25→16:44)
[2018-10-20] MEDS: ALBUTEROL/IPRATROPIUM 3 ML NEB RESP TX SCH ×5 (02:38→19:14)
[2018-10-20] MEDS: methylPREDNISolone SOD SUC 125 MG/2 ML VIAL IV SCH ×3 (04:59→22:24)
[2018-10-20 05:44] LABS: Basophils % 0.1 % (0.0-0.8); Hematocrit 34.8 VOL% (42.0-52.0); Hemoglobin 10.8 GM/DL (14.0-18.0); Immature Granulocytes Absolute 0.11 #; Lymphocytes # 0.7 10*3/uL (1.4-4.0); Lymphocytes % 5.9 % (21.2-54.2); Mean Corpuscular Hemoglobin 30 PG (27-34); Mean Corpuscular Volume 97.5 FL (87-102); Mean Platelet Volume 10.4 FL (9.6-12.0); Monocytes # 0.8 10*3/uL (0.11-0.8); Monocytes % 7.4 % (1.7-12.7); Neutrophils # 9.4 10*3/uL (1.4-7.4); Neutrophils % 85.6 % (38.7-73.9); Platelet Count 326 T/CUMM (130-400); Red Blood Count 3.57 MC/CUMM (3.8-5.5); Red Cell Distribution Width 13.8 % (9.3-17.3)
[2018-10-20 06:08] LABS: Calcium 7.8 MG/DL (8.5-10.1); Osmolality,Calculated 286.1 MOS/KG (273-304); Potassium 3.3 MMOL/L (3.5-5.1)
[2018-10-20] MEDS: ARFORMOTEROL 15 MCG/2 ML NEB RESP TX SCH ×2 (07:13→19:14)
[2018-10-20] MEDS: INSULIN REGULAR 100 UNIT/ML SUBCUT SCH ×4 (08:15→21:24)
[2018-10-20] MEDS: INSULIN GLARGINE 100 UNIT/ML SUBCUT SCH ×2 (08:15→20:27)
[2018-10-20] MEDS: ENOXAPARIN 40 MG/0.4 ML SYRINGE SUBCUT SCH (08:16)
[2018-10-20] MEDS: FUROSEMIDE 40 MG/4 ML VIAL IV SCH ×2 (08:16→16:45)
[2018-10-20] MEDS: ASPIRIN EC 81 MG TABLET PO SCH (08:16)
[2018-10-20] MEDS: SPIRONOLACTONE 25 MG TABLET PO SCH (08:16)
[2018-10-20] MEDS: POTASSIUM CHLORIDE 20 MEQ TABLET PO PRN (08:17)
[2018-10-20] MEDS: ISOSORBIDE MONONITRATE 30 MG TABLET PO SCH ×2 (08:17→20:26)
[2018-10-20] MEDS: FAMOTIDINE 20 MG TABLET PO SCH ×2 (08:17→20:26)
[2018-10-20] MEDS: GABAPENTIN 100 MG CAPSULE PO SCH ×2 (08:17→20:27)
[2018-10-20] MEDS: PANTOPRAZOLE 40 MG TABLET PO SCH (08:18)
[2018-10-20] MEDS: MULTIVITAMIN (CENTRUM) TABLET PO SCH (08:18)
[2018-10-20] MEDS: THIAMINE 100 MG TABLET PO SCH (08:18)
[2018-10-20] MEDS: POTASSIUM CHLORIDE 10 MEQ TABLET PO SCH (08:18)
[2018-10-20] MEDS: TAMSULOSIN 0.4 MG CAPSULE PO SCH (08:18)
[2018-10-20] MEDS: BACITRACIN OINT 28.35 GM TUBE TOP SCH (08:18)
[2018-10-20] MEDS: SKIN HEALING OINT (AQUAPHOR) 50 GM TUBE TOP SCH (08:18)
[2018-10-20] MEDS: FOLIC ACID 1 MG TABLET PO SCH (08:18)
[2018-10-20] MEDS ORDERED: POTASSIUM CHLORIDE 20 MEQ/15 ML UDCUP PO ONE (08:46)
[2018-10-20] MEDS ORDERED: LORazepam 2 MG/1 ML VIAL IV ONE (09:37)
[2018-10-20] MEDS: VANCOMYCIN INJ 2,000 MG in SODIUM CHLORIDE 0.9% 500 ML IV SCH ×2 (09:50→21:25)
[2018-10-20 15:50] LABS: ABG Base Excess 9.8 MMOL/L (-2.5-2.5); ABG HCO3 33.4 MMOL/L (20-26); ABG Oxygen Saturation 90.5 % (95-100); ABG PCO2 46.7 MM HG (35-48); ABG TCO2 30.6 MMOL/L (23-27); Allen Test Positive; Pt O2 Delivery Device CPAP
[2018-10-21] MEDS: ALBUTEROL/IPRATROPIUM 3 ML NEB RESP TX SCH ×5 (00:37→14:04)
[2018-10-21] MEDS: MORPHINE 4 MG/1 ML VIAL IV PRN ×3 (01:16→10:54)
[2018-10-21] MEDS: PIPERACILLIN/TAZOBACTAM 3,375 MG in SODIUM CHLORIDE 0.9% 100 ML IV SCH (02:05)
[2018-10-21] MEDS: methylPREDNISolone SOD SUC 125 MG/2 ML VIAL IV SCH ×2 (05:22→12:31)
[2018-10-21] MEDS: ARFORMOTEROL 15 MCG/2 ML NEB RESP TX SCH (07:27)
[2018-10-21] MEDS: INSULIN REGULAR 100 UNIT/ML SUBCUT SCH ×2 (08:27→12:30)
[2018-10-21] MEDS: FUROSEMIDE 40 MG/4 ML VIAL IV SCH (08:28)
[2018-10-21] MEDS ORDERED: GENTAMICIN 0.1% CREAM 15 GM TUBE TOP SCH (09:00)
[2018-10-21] MEDS ORDERED: LISINOPRIL 10 MG TABLET PO SCH (09:00)
[2018-10-21] MEDS: ISOSORBIDE MONONITRATE 30 MG TABLET PO SCH (09:36)
[2018-10-21] MEDS: GABAPENTIN 100 MG CAPSULE PO SCH (09:36)
[2018-10-21] MEDS: TAMSULOSIN 0.4 MG CAPSULE PO SCH (09:36)
[2018-10-21] MEDS: POTASSIUM CHLORIDE 10 MEQ TABLET PO SCH (09:36)
[2018-10-21] MEDS: ASPIRIN EC 81 MG TABLET PO SCH (09:36)
[2018-10-21] MEDS: MULTIVITAMIN (CENTRUM) TABLET PO SCH (09:36)
[2018-10-21] MEDS: PANTOPRAZOLE 40 MG TABLET PO SCH (09:37)
[2018-10-21] MEDS: FOLIC ACID 1 MG TABLET PO SCH (09:37)
[2018-10-21] MEDS: FAMOTIDINE 20 MG TABLET PO SCH (09:37)
[2018-10-21] MEDS: SPIRONOLACTONE 25 MG TABLET PO SCH (09:37)
[2018-10-21] MEDS: THIAMINE 100 MG TABLET PO SCH (09:37)
[2018-10-21] MEDS: ENOXAPARIN 40 MG/0.4 ML SYRINGE SUBCUT SCH (09:42)
[2018-10-21] MEDS: INSULIN GLARGINE 100 UNIT/ML SUBCUT SCH (09:42)
[2018-10-21] MEDS: NAFCILLIN 2,000 MG in SODIUM CHLORIDE 0.9% 100 ML IV SCH ×2 (09:42→12:31)
[2018-10-21] MEDS: SKIN HEALING OINT (AQUAPHOR) 50 GM TUBE TOP SCH (10:12)
[2018-10-21 11:57] VITALS: BP 164/96
[2018-10-21] MEDS: POTASSIUM CHLORIDE 20 MEQ TABLET PO PRN (12:57)
== END 2018-10-21 15:50 | DRG 191 ==
LOC: EDUNIT# → EDBD → N.EDINP 01:28 → N.ED 01:28 → N.2E 05:11 → N.SDSINP 10-18 18:14
PROVIDERS: ADMIT Internal Medicine; ATTEND Internal Medicine

== ENCOUNTER 2019-02-15 17:30 | Inpatient (IN) ==
[2019-02-15] MEDS ORDERED: hydrALAZINE 20 MG/1 ML VIAL IV STA (18:48)
[2019-02-15 18:50] LABS: Basophils % 0.2 % (0.0-0.8); Eosinophils % 0.2 % (0.00-10.9); Hematocrit 46.3 VOL% (42.0-52.0); Hemoglobin 14.1 GM/DL (14.0-18.0); Immature Granulocytes % 0.3 %; Immature Granulocytes Absolute 0.04 #; Lymphocytes # 0.5 10*3/uL (1.4-4.0); Lymphocytes % 3.7 % (21.2-54.2); Mean Corpuscular HGB Conc 30.5 GM/DL (32-36); Mean Corpuscular Volume 97.7 FL (87-102); Mean Platelet Volume 9.9 FL (9.6-12.0); Monocytes % 7.6 % (1.7-12.7); Platelet Count 304 T/CUMM (130-400); Red Blood Count 4.74 MC/CUMM (3.8-5.5); Red Cell Distribution Width 13.2 % (9.3-17.3); White Blood Count 12.6 T/CUMM (4-12)
[2019-02-15 19:01] LABS: Apearance,Urine CLEAR (Clear); Bilirubin,Urine Negative (Negative); Blood, Urine Large mg/dL (Negative); Glucose,Urine (UA) 150 mg/dL (Negative); Hyaline Casts,Urine 4 /LPF (0-3); Ketones,Urine 80 mg/dL (Negative); Mucus,Urine Occasional /LPF (Occasional); Nitrite,Urine Negative (Negative); Protein,Urine 100 MG/DL; RBC,Urine 4 /HPF (0-4); Squamous Epithelial Cell,Urine Occasional /HPF (0-10); Urine Color Yellow (Yellow); Urine Specific Gravity 1.016 (1.001-1.035); Urine Urobilinogen < 2.0 EU/DL (0.2-1.0); WBC,Urine 1 /HPF (0-6)
[2019-02-15 19:29] LABS: Albumin 3.2 G/DL (3.4-5.0); Bilirubin,Total 0.6 MG/DL (0.2-1.0); CKMB % 0.9 %; Calcium 8.5 MG/DL (8.5-10.1); Osmolality,Calculated 281.4 MOS/KG (273-304); Total Protein 7.8 G/DL (6.4-8.3); Troponin I 0.031 NG/ML (0.00-0.045)
[2019-02-15] MEDS ORDERED: SODIUM CHLORIDE 0.9% 500 ML IV STA (19:52)
[2019-02-15 20:27] LABS: Hypochromasia Slight; Lymphocytes 3 % (20-55); Segmented Neutrophils 90 % (50-85); Total Cells Counted 100
[2019-02-15 20:28] LABS: Platelet Estimate Adequate
[2019-02-15] MEDS ORDERED: KETOROLAC 30 MG/1 ML VIAL IV STA (21:26)
[2019-02-15] MEDS ORDERED: FUROSEMIDE 100 MG/10 ML VIAL IV STA (21:38)
[2019-02-15] MEDS ORDERED: MORPHINE 4 MG/1 ML VIAL IV STA (21:38)
[2019-02-15] MEDS ORDERED: FUROSEMIDE 40 MG/4 ML VIAL ONE (21:55)
[2019-02-15] MEDS ORDERED: ONDANSETRON 4 MG/2 ML VIAL IV PRN (22:20)
[2019-02-15] MEDS ORDERED: BISACODYL 5 MG TABLET PO PRN (22:20)
[2019-02-15] MEDS ORDERED: SODIUM CHLORIDE 0.9% 1,000 ML IV SCH (22:30)
[2019-02-15 23:36] LABS: ABG HCO3 27.6 MMOL/L (20-26); ABG Oxygen Saturation 96.9 % (95-100); ABG PCO2 46.5 MM HG (35-48); ABG PH 7.391 (7.35-7.45); ABG PO2 93.5 MM HG (80-95); Allen Test Positive
[2019-02-16] MEDS ORDERED: NITROGLYCERIN SL 0.4 MG TABLET SL PRN (00:51)
[2019-02-16] MEDS: ALBUTEROL/IPRATROPIUM 3 ML NEB RESP TX SCH ×4 (01:23→18:48)
[2019-02-16 04:54] LABS: Basophils % 0.3 % (0.0-0.8); Eosinophils # 0.2 10*3/uL (0.0-0.87); Eosinophils % 1.8 % (0.00-10.9); Hematocrit 44.6 VOL% (42.0-52.0); Hemoglobin 13.6 GM/DL (14.0-18.0); Immature Granulocytes % 0.4 %; Immature Granulocytes Absolute 0.04 #; Lymphocytes # 0.7 10*3/uL (1.4-4.0); Lymphocytes % 7.2 % (21.2-54.2); Mean Corpuscular HGB Conc 30.5 GM/DL (32-36); Mean Corpuscular Volume 98.2 FL (87-102); Mean Platelet Volume 10.2 FL (9.6-12.0); Monocytes % 11.4 % (1.7-12.7); Neutrophils % 78.9 % (38.7-73.9); Platelet Count 287 T/CUMM (130-400); Red Blood Count 4.54 MC/CUMM (3.8-5.5); Red Cell Distribution Width 13.4 % (9.3-17.3); White Blood Count 10.1 T/CUMM (4-12)
[2019-02-16 06:48] LABS: CKMB % 0.8 %; Troponin I 0.071 NG/ML (0.00-0.045)
[2019-02-16 07:44] LABS: Albumin 2.8 G/DL (3.4-5.0); Bilirubin,Total 0.7 MG/DL (0.2-1.0); Calcium 8.5 MG/DL (8.5-10.1); Osmolality,Calculated 278.5 MOS/KG (273-304)
[2019-02-16] MEDS: SODIUM CHLORIDE 0.9% 1,000 ML IV SCH ×2 (09:30→18:13)
[2019-02-16] MEDS: POTASSIUM CHLORIDE 10 MEQ TABLET PO SCH (09:40)
[2019-02-16] MEDS: TAMSULOSIN 0.4 MG CAPSULE PO SCH (09:40)
[2019-02-16] MEDS: ENOXAPARIN 40 MG/0.4 ML SYRINGE SUBCUT SCH (09:40)
[2019-02-16] MEDS: ISOSORBIDE MONONITRATE 30 MG TABLET PO SCH ×2 (09:40→20:39)
[2019-02-16] MEDS: PANTOPRAZOLE 40 MG TABLET PO SCH (09:40)
[2019-02-16] MEDS: ASPIRIN EC 81 MG TABLET PO SCH (09:40)
[2019-02-16 10:51] LABS: Albumin 2.8 G/DL (3.4-5.0); Calcium 7.8 MG/DL (8.5-10.1); Osmolality,Calculated 276.5 MOS/KG (273-304)
[2019-02-16] MEDS ORDERED: TUBERCULIN SKIN TEST 0.1 ML SYRINGE INTRADERM ONE (14:48)
[2019-02-16] MEDS ORDERED: METAXALONE 800 MG TABLET PO PRN (14:54)
[2019-02-16] MEDS: MORPHINE 4 MG/1 ML VIAL IV PRN ×2 (15:23→18:16)
[2019-02-17] MEDS: SODIUM CHLORIDE 0.9% 1,000 ML IV SCH ×4 (00:11→12:50)
[2019-02-17] MEDS: ALBUTEROL/IPRATROPIUM 3 ML NEB RESP TX SCH ×4 (00:29→20:29)
[2019-02-17] MEDS: MORPHINE 4 MG/1 ML VIAL IV PRN ×2 (03:34→23:34)
[2019-02-17 05:02] LABS: Basophils % 0.5 % (0.0-0.8); Eosinophils # 0.5 10*3/uL (0.0-0.87); Immature Granulocytes % 0.2 %; Immature Granulocytes Absolute 0.02 #; Lymphocytes # 0.7 10*3/uL (1.4-4.0); Lymphocytes % 8.2 % (21.2-54.2); Mean Corpuscular HGB Conc 29.6 GM/DL (32-36); Mean Corpuscular Volume 99.5 FL (87-102); Mean Platelet Volume 10.5 FL (9.6-12.0); Monocytes % 11.5 % (1.7-12.7); Neutrophils % 73.6 % (38.7-73.9); Platelet Count 252 T/CUMM (130-400); Red Blood Count 3.87 MC/CUMM (3.8-5.5); Red Cell Distribution Width 13.3 % (9.3-17.3)
[2019-02-17 05:38] LABS: Alanine Aminotransferase 76 U/L (16-61); Albumin 2.3 G/DL (3.4-5.0); Alkaline Phosphatase 52 U/L (45-117); Aspartate Amino Transferase 190 U/L (0-37); Bilirubin,Total < 0.39 MG/DL (0.2-1.0); Blood Urea Nitrogen 14 MG/DL (7-18); CKMB % 0.2 %; Calcium 7.7 MG/DL (8.5-10.1); Glucose 154 MG/DL (74-106); Osmolality,Calculated 286.1 MOS/KG (273-304)
[2019-02-17 05:49] LABS: Hematocrit 37.6 VOL% (42.0-52.0); Hemoglobin 11.5 GM/DL (14.0-18.0)
[2019-02-17] MEDS ORDERED: BUPIVACAINE MPF 0.25% 10 ML VIAL MISC INJ ONE (07:00)
[2019-02-17] MEDS ORDERED: BETAMETH SODIUM PHOS/ACETATE 30 MG/5 ML VIAL INTRABURS ONE (07:30)
[2019-02-17] MEDS ORDERED: BUPIVACAINE 0.25% 50 ML VIAL MISC INJ ONE (07:30)
[2019-02-17] MEDS: ENOXAPARIN 40 MG/0.4 ML SYRINGE SUBCUT SCH (09:17)
[2019-02-17] MEDS: TAMSULOSIN 0.4 MG CAPSULE PO SCH (09:17)
[2019-02-17] MEDS: ASPIRIN EC 81 MG TABLET PO SCH (09:17)
[2019-02-17] MEDS: ISOSORBIDE MONONITRATE 30 MG TABLET PO SCH ×2 (09:17→20:45)
[2019-02-17] MEDS: PANTOPRAZOLE 40 MG TABLET PO SCH (09:17)
[2019-02-17] MEDS: POTASSIUM CHLORIDE 10 MEQ TABLET PO SCH (09:17)
[2019-02-17] MEDS ORDERED: GLUCAGON 1 MG VIAL IM PRN (14:06)
[2019-02-17] MEDS ORDERED: DEXTROSE 50% 25 GM/50 ML VIAL IV PRN (14:06)
[2019-02-17] MEDS: INSULIN LISPRO 100 UNIT/ML SUBCUT SCH ×2 (17:21→20:45)
[2019-02-18] MEDS: ALBUTEROL/IPRATROPIUM 3 ML NEB RESP TX SCH ×4 (01:30→19:45)
[2019-02-18 04:48] LABS: Basophils % 0.1 % (0.0-0.8); Hematocrit 38.5 VOL% (42.0-52.0); Hemoglobin 11.8 GM/DL (14.0-18.0); Immature Granulocytes % 0.4 %; Immature Granulocytes Absolute 0.03 #; Lymphocytes # 0.3 10*3/uL (1.4-4.0); Lymphocytes % 4.8 % (21.2-54.2); Mean Corpuscular HGB Conc 30.6 GM/DL (32-36); Mean Platelet Volume 10.8 FL (9.6-12.0); Monocytes % 2.6 % (1.7-12.7); Neutrophils % 92.1 % (38.7-73.9); Platelet Count 241 T/CUMM (130-400); Red Blood Count 3.93 MC/CUMM (3.8-5.5); White Blood Count 6.9 T/CUMM (4-12)
[2019-02-18 05:30] LABS: Alanine Aminotransferase 75 U/L (16-61); Albumin 2.4 G/DL (3.4-5.0); Alkaline Phosphatase 56 U/L (45-117); Aspartate Amino Transferase 118 U/L (0-37); Blood Urea Nitrogen 12 MG/DL (7-18); Glucose 224 MG/DL (74-106); Osmolality,Calculated 289.1 MOS/KG (273-304); Total Protein 6.6 G/DL (6.4-8.3)
[2019-02-18 05:43] LABS: Band Neutrophils 1 % (0-10); Lymphocytes 2 % (20-55); Segmented Neutrophils 95 % (50-85)
[2019-02-18 05:44] LABS: Platelet Estimate Adequate; Total Cells Counted 100
[2019-02-18] MEDS: ASPIRIN EC 81 MG TABLET PO SCH (10:09)
[2019-02-18] MEDS: PANTOPRAZOLE 40 MG TABLET PO SCH (10:09)
[2019-02-18] MEDS: POTASSIUM CHLORIDE 10 MEQ TABLET PO SCH (10:09)
[2019-02-18] MEDS: ENOXAPARIN 40 MG/0.4 ML SYRINGE SUBCUT SCH (10:10)
[2019-02-18] MEDS: INSULIN LISPRO 100 UNIT/ML SUBCUT SCH ×4 (10:10→21:04)
[2019-02-18] MEDS: ISOSORBIDE MONONITRATE 30 MG TABLET PO SCH ×2 (10:10→21:04)
[2019-02-18] MEDS: TAMSULOSIN 0.4 MG CAPSULE PO SCH (10:10)
[2019-02-18] MEDS: MORPHINE 4 MG/1 ML VIAL IV PRN (16:46)
[2019-02-19] MEDS: ALBUTEROL/IPRATROPIUM 3 ML NEB RESP TX SCH ×3 (01:25→13:30)
[2019-02-19] MEDS: MORPHINE 4 MG/1 ML VIAL IV PRN (02:04)
[2019-02-19 05:34] LABS: Basophils % 0.2 % (0.0-0.8); Hematocrit 37.1 VOL% (42.0-52.0); Hemoglobin 11.2 GM/DL (14.0-18.0); Immature Granulocytes % 0.5 %; Immature Granulocytes Absolute 0.05 #; Lymphocytes # 0.7 10*3/uL (1.4-4.0); Mean Corpuscular HGB Conc 30.2 GM/DL (32-36); Mean Corpuscular Volume 97.9 FL (87-102); Mean Platelet Volume 10.6 FL (9.6-12.0); Monocytes % 7.3 % (1.7-12.7); Platelet Count 266 T/CUMM (130-400); Red Blood Count 3.79 MC/CUMM (3.8-5.5); Red Cell Distribution Width 13.2 % (9.3-17.3); White Blood Count 9.5 T/CUMM (4-12)
[2019-02-19 05:48] LABS: Blood Urea Nitrogen 23 MG/DL (7-18); Calcium 8.3 MG/DL (8.5-10.1); Glucose 232 MG/DL (74-106); Osmolality,Calculated 287.5 MOS/KG (273-304)
[2019-02-19] MEDS: TAMSULOSIN 0.4 MG CAPSULE PO SCH (09:41)
[2019-02-19] MEDS: ISOSORBIDE MONONITRATE 30 MG TABLET PO SCH (09:41)
[2019-02-19] MEDS: ENOXAPARIN 40 MG/0.4 ML SYRINGE SUBCUT SCH (09:41)
[2019-02-19] MEDS: INSULIN LISPRO 100 UNIT/ML SUBCUT SCH ×2 (09:41→12:26)
[2019-02-19] MEDS: PANTOPRAZOLE 40 MG TABLET PO SCH (09:41)
[2019-02-19] MEDS: POTASSIUM CHLORIDE 10 MEQ TABLET PO SCH (09:41)
[2019-02-19] MEDS: ASPIRIN EC 81 MG TABLET PO SCH (09:45)
[2019-02-19 11:29] VITALS: BP 142/95
== END 2019-02-19 14:03 | DRG 565 ==
LOC: EDUNIT# → N.EDINP 17:30 → N.ED 17:30 → N.5E 23:05
PROVIDERS: ADMIT Family Medicine; ATTEND Family Medicine

== ENCOUNTER 2019-05-26 00:35 | Inpatient (IN) ==
[2019-05-26] MEDS ORDERED: methylPREDNISolone SOD SUC 125 MG/2 ML VIAL IV STA (01:05)
[2019-05-26] MEDS ORDERED: ONDANSETRON 4 MG/2 ML VIAL IV STA (01:05)
[2019-05-26] MEDS ORDERED: FUROSEMIDE 100 MG/10 ML VIAL IV STA (01:05)
[2019-05-26] MEDS ORDERED: ALBUTEROL NEB SOLN 5 MG/ML 20 ML/BOTTLE RESP TX SCH (01:30)
[2019-05-26 01:55] LABS: ABG Base Excess 2.3 MMOL/L (-2.5-2.5); ABG HCO3 27.6 MMOL/L (20-26); ABG Oxygen Saturation 96.2 % (95-100); ABG PCO2 45.8 MM HG (35-48); ABG PH 7.398 (7.35-7.45); ABG PO2 83.5 MM HG (80-95); Allen Test Positive; Pt O2 Delivery Device Other
[2019-05-26 02:08] LABS: Basophils % 0.2 % (0.0-0.8); Eosinophils # 0.5 10*3/uL (0.0-0.87); Eosinophils % 5.1 % (0.00-10.9); Hematocrit 37.5 VOL% (42.0-52.0); Hemoglobin 11.6 GM/DL (14.0-18.0); Immature Granulocytes % 0.4 %; Immature Granulocytes Absolute 0.04 #; Lymphocytes # 0.7 10*3/uL (1.4-4.0); Lymphocytes % 6.3 % (21.2-54.2); Mean Corpuscular HGB Conc 30.9 GM/DL (32-36); Mean Corpuscular Volume 94.5 FL (87-102); Mean Platelet Volume 10.1 FL (9.6-12.0); Monocytes % 7.8 % (1.7-12.7); Neutrophils % 80.2 % (38.7-73.9); Platelet Count 338 T/CUMM (130-400); Red Blood Count 3.97 MC/CUMM (3.8-5.5); Red Cell Distribution Width 14.6 % (9.3-17.3); White Blood Count 10.3 T/CUMM (4-12)
[2019-05-26 02:18] LABS: PT Patient Result 11.3 SECS (9.6-12.2)
[2019-05-26 02:30] LABS: Alanine Aminotransferase 16 U/L (16-61); Albumin 2.6 G/DL (3.4-5.0); Alkaline Phosphatase 68 U/L (45-117); Aspartate Amino Transferase 18 U/L (0-37); Blood Urea Nitrogen 9 MG/DL (7-18); Calcium 7.9 MG/DL (8.5-10.1); Estimated Glom Filtration Rate 134 ML/MIN; Glucose 197 MG/DL (74-106); Osmolality,Calculated 286.1 MOS/KG (273-304); Total Protein 8.3 G/DL (6.4-8.3); Troponin I < 0.015 NG/ML (0.00-0.045)
[2019-05-26 02:43] LABS: Apearance,Urine CLEAR (Clear); Bilirubin,Urine Negative (Negative); Blood, Urine Small mg/dL (Negative); Glucose,Urine (UA) 50 mg/dL (Negative); Ketones,Urine 5 mg/dL (Negative); Mucus,Urine Occasional /LPF (Occasional); Nitrite,Urine Negative (Negative); Protein,Urine 100 MG/DL; RBC,Urine 1 /HPF (0-4); Squamous Epithelial Cell,Urine Occasional /HPF (0-10); Urine Color Yellow (Yellow); Urine Specific Gravity 1.019 (1.001-1.035); Urine Urobilinogen < 2.0 EU/DL (0.2-1.0); WBC,Urine 2 /HPF (0-6)
[2019-05-26] MEDS ORDERED: MORPHINE 4 MG/1 ML VIAL IV STA (04:01)
[2019-05-26] MEDS ORDERED: guaiFENesin/DM ER 600-30 MG TABLET PO PRN (04:21)
[2019-05-26] MEDS ORDERED: diphenhydrAMINE CAP 25 MG CAPSULE PO PRN (04:21)
[2019-05-26] MEDS ORDERED: ONDANSETRON 4 MG/2 ML VIAL IV PRN (04:21)
[2019-05-26] MEDS ORDERED: NICOTINE 21 MG/24 HR PATCH TRANSDERM PRN (04:21)
[2019-05-26] MEDS ORDERED: BISACODYL 5 MG TABLET PO PRN (04:21)
[2019-05-26] MEDS: methylPREDNISolone SOD SUC 40 MG/1 ML VIAL IV SCH ×2 (07:15→20:05)
[2019-05-26] MEDS: CLINDAMYCIN INJ 600 MG in PREMIX 1 EACH IV SCH ×3 (07:17→20:05)
[2019-05-26] MEDS: ALBUTEROL/IPRATROPIUM 3 ML NEB RESP TX SCH ×3 (07:22→19:41)
[2019-05-26] MEDS: ENOXAPARIN 120 MG/0.8 ML SYRINGE SUBCUT SCH ×2 (11:21→20:41)
[2019-05-26] MEDS: FUROSEMIDE 40 MG/4 ML VIAL IV SCH ×2 (11:21→16:52)
[2019-05-26] MEDS: SKIN HEALING OINT (AQUAPHOR) 50 GM TUBE TOP SCH (14:49)
[2019-05-26] MEDS: SILVER SULFADIAZINE 1% CREAM 25 GM TUBE TOP SCH (14:49)
[2019-05-26] MEDS: traMADol 50 MG TABLET PO PRN ×2 (15:57→23:34)
[2019-05-26] MEDS ORDERED: LORazepam 2 MG/1 ML VIAL IV ONE (17:52)
[2019-05-27] MEDS: ALBUTEROL/IPRATROPIUM 3 ML NEB RESP TX SCH ×4 (00:11→20:47)
[2019-05-27] MEDS: CLINDAMYCIN INJ 600 MG in PREMIX 1 EACH IV SCH ×4 (01:30→20:15)
[2019-05-27 05:51] LABS: Basophils % 0.1 % (0.0-0.8); Hemoglobin 10.8 GM/DL (14.0-18.0); Immature Granulocytes % 0.5 %; Immature Granulocytes Absolute 0.07 #; Lymphocytes # 0.6 10*3/uL (1.4-4.0); Lymphocytes % 4.2 % (21.2-54.2); Mean Corpuscular HGB Conc 30.9 GM/DL (32-36); Mean Corpuscular Volume 95.1 FL (87-102); Mean Platelet Volume 10.1 FL (9.6-12.0); Monocytes % 5.3 % (1.7-12.7); Neutrophils % 89.9 % (38.7-73.9); Platelet Count 320 T/CUMM (130-400); Red Blood Count 3.68 MC/CUMM (3.8-5.5); Red Cell Distribution Width 14.4 % (9.3-17.3); White Blood Count 13.7 T/CUMM (4-12)
[2019-05-27 06:13] LABS: Lymphocytes 2 % (20-55); Platelet Estimate Adequate; Segmented Neutrophils 94 % (50-85); Total Cells Counted 100
[2019-05-27 06:14] LABS: Hypochromasia 1+
[2019-05-27 06:32] LABS: Albumin 2.4 G/DL (3.4-5.0); Bilirubin,Total 0.4 MG/DL (0.2-1.0); Calcium 8.2 MG/DL (8.5-10.1); Osmolality,Calculated 293.5 MOS/KG (273-304); Total Protein 8.1 G/DL (6.4-8.3)
[2019-05-27] MEDS: FUROSEMIDE 40 MG/4 ML VIAL IV SCH ×2 (08:36→17:17)
[2019-05-27] MEDS: ENOXAPARIN 120 MG/0.8 ML SYRINGE SUBCUT SCH (08:36)
[2019-05-27] MEDS: methylPREDNISolone SOD SUC 40 MG/1 ML VIAL IV SCH ×2 (08:36→20:15)
[2019-05-27] MEDS: traMADol 50 MG TABLET PO PRN ×2 (08:36→13:29)
[2019-05-27] MEDS ORDERED: POTASSIUM CHLORIDE 20 MEQ TABLET PO ONE (10:13)
[2019-05-27] MEDS ORDERED: NITROGLYCERIN SL 0.4 MG TABLET SL PRN (10:16)
[2019-05-27] MEDS: SKIN HEALING OINT (AQUAPHOR) 50 GM TUBE TOP SCH (15:00)
[2019-05-27] MEDS: SILVER SULFADIAZINE 1% CREAM 25 GM TUBE TOP SCH (15:00)
[2019-05-28] MEDS: ALBUTEROL/IPRATROPIUM 3 ML NEB RESP TX SCH ×4 (01:00→19:12)
[2019-05-28] MEDS: CLINDAMYCIN INJ 600 MG in PREMIX 1 EACH IV SCH ×4 (01:24→21:56)
[2019-05-28] MEDS: FUROSEMIDE 40 MG/4 ML VIAL IV SCH ×2 (08:34→16:04)
[2019-05-28] MEDS: ENOXAPARIN 40 MG/0.4 ML SYRINGE SUBCUT SCH (08:34)
[2019-05-28] MEDS: methylPREDNISolone SOD SUC 40 MG/1 ML VIAL IV SCH ×2 (08:34→21:57)
[2019-05-28] MEDS: TAMSULOSIN 0.4 MG CAPSULE PO SCH (08:35)
[2019-05-28] MEDS: ASPIRIN EC 81 MG TABLET PO SCH (08:35)
[2019-05-28 08:36] LABS: Calcium 7.8 MG/DL (8.5-10.1); Osmolality,Calculated 296.8 MOS/KG (273-304)
[2019-05-28] MEDS ORDERED: POTASSIUM CHLORIDE 20 MEQ TABLET PO SCH (09:00)
[2019-05-28] MEDS: POTASSIUM CHLORIDE 20 MEQ TABLET PO SCH ×3 (10:56→22:09)
[2019-05-28] MEDS: SKIN HEALING OINT (AQUAPHOR) 50 GM TUBE TOP SCH (11:00)
[2019-05-28] MEDS: SILVER SULFADIAZINE 1% CREAM 25 GM TUBE TOP SCH (11:00)
[2019-05-28] MEDS: VENLAFAXINE XR 37.5 MG CAPSULE PO SCH (17:47)
[2019-05-28] MEDS: CHOLECALCIFEROL 1,000 UNIT TABLET PO SCH (17:47)
[2019-05-29] MEDS: ALBUTEROL/IPRATROPIUM 3 ML NEB RESP TX SCH ×4 (00:49→19:38)
[2019-05-29] MEDS: CLINDAMYCIN INJ 600 MG in PREMIX 1 EACH IV SCH ×4 (01:40→21:03)
[2019-05-29 06:20] LABS: Calcium 7.9 MG/DL (8.5-10.1); Osmolality,Calculated 292.8 MOS/KG (273-304)
[2019-05-29] MEDS: methylPREDNISolone SOD SUC 40 MG/1 ML VIAL IV SCH ×2 (08:31→21:00)
[2019-05-29] MEDS: SKIN HEALING OINT (AQUAPHOR) 50 GM TUBE TOP SCH (08:32)
[2019-05-29] MEDS: VENLAFAXINE XR 37.5 MG CAPSULE PO SCH (08:32)
[2019-05-29] MEDS: FUROSEMIDE 40 MG/4 ML VIAL IV SCH ×2 (08:32→16:12)
[2019-05-29] MEDS: CHOLECALCIFEROL 1,000 UNIT TABLET PO SCH (08:33)
[2019-05-29] MEDS: ASPIRIN EC 81 MG TABLET PO SCH (08:33)
[2019-05-29] MEDS: POTASSIUM CHLORIDE 20 MEQ TABLET PO SCH ×2 (08:33→21:02)
[2019-05-29] MEDS: SILVER SULFADIAZINE 1% CREAM 25 GM TUBE TOP SCH (08:34)
[2019-05-29] MEDS: TAMSULOSIN 0.4 MG CAPSULE PO SCH (08:34)
[2019-05-29] MEDS: ENOXAPARIN 40 MG/0.4 ML SYRINGE SUBCUT SCH (08:34)
[2019-05-30] MEDS: ALBUTEROL/IPRATROPIUM 3 ML NEB RESP TX SCH ×4 (00:18→20:15)
[2019-05-30] MEDS: CLINDAMYCIN INJ 600 MG in PREMIX 1 EACH IV SCH ×4 (01:07→21:23)
[2019-05-30 06:13] LABS: Calcium 7.8 MG/DL (8.5-10.1); Osmolality,Calculated 288.2 MOS/KG (273-304)
[2019-05-30] MEDS: FUROSEMIDE 40 MG/4 ML VIAL IV SCH ×2 (08:05→16:05)
[2019-05-30] MEDS: CHOLECALCIFEROL 1,000 UNIT TABLET PO SCH (08:06)
[2019-05-30] MEDS: ASPIRIN EC 81 MG TABLET PO SCH (08:06)
[2019-05-30] MEDS: VENLAFAXINE XR 37.5 MG CAPSULE PO SCH (08:06)
[2019-05-30] MEDS: POTASSIUM CHLORIDE 20 MEQ TABLET PO SCH ×2 (08:06→21:23)
[2019-05-30] MEDS: ENOXAPARIN 40 MG/0.4 ML SYRINGE SUBCUT SCH (08:07)
[2019-05-30] MEDS: methylPREDNISolone SOD SUC 40 MG/1 ML VIAL IV SCH ×2 (08:07→21:23)
[2019-05-30] MEDS: TAMSULOSIN 0.4 MG CAPSULE PO SCH (08:07)
[2019-05-30] MEDS: SKIN HEALING OINT (AQUAPHOR) 50 GM TUBE TOP SCH (08:08)
[2019-05-30] MEDS: SILVER SULFADIAZINE 1% CREAM 25 GM TUBE TOP SCH (08:08)
[2019-05-31] MEDS: CLINDAMYCIN INJ 600 MG in PREMIX 1 EACH IV SCH ×4 (01:01→20:37)
[2019-05-31] MEDS: ALBUTEROL/IPRATROPIUM 3 ML NEB RESP TX SCH ×4 (02:13→19:00)
[2019-05-31 05:25] LABS: Basophils % 0.2 % (0.0-0.8); Hematocrit 44.4 VOL% (42.0-52.0); Hemoglobin 13.9 GM/DL (14.0-18.0); Immature Granulocytes % 0.8 %; Lymphocytes # 0.8 10*3/uL (1.4-4.0); Lymphocytes % 6.3 % (21.2-54.2); Mean Corpuscular HGB Conc 31.3 GM/DL (32-36); Mean Corpuscular Volume 91.5 FL (87-102); Mean Platelet Volume 9.8 FL (9.6-12.0); Monocytes % 6.2 % (1.7-12.7); Neutrophils % 86.5 % (38.7-73.9); Platelet Count 412 T/CUMM (130-400); Red Blood Count 4.85 MC/CUMM (3.8-5.5); Red Cell Distribution Width 13.9 % (9.3-17.3); White Blood Count 12.3 T/CUMM (4-12)
[2019-05-31 05:53] LABS: Calcium 8.2 MG/DL (8.5-10.1); Osmolality,Calculated 291.4 MOS/KG (273-304)
[2019-05-31] MEDS: ENOXAPARIN 40 MG/0.4 ML SYRINGE SUBCUT SCH (08:32)
[2019-05-31] MEDS: TAMSULOSIN 0.4 MG CAPSULE PO SCH (08:32)
[2019-05-31] MEDS: CHOLECALCIFEROL 1,000 UNIT TABLET PO SCH (08:32)
[2019-05-31] MEDS: POTASSIUM CHLORIDE 20 MEQ TABLET PO SCH ×2 (08:32→20:38)
[2019-05-31] MEDS: methylPREDNISolone SOD SUC 40 MG/1 ML VIAL IV SCH ×2 (08:33→20:38)
[2019-05-31] MEDS: FUROSEMIDE 40 MG/4 ML VIAL IV SCH ×2 (08:33→16:55)
[2019-05-31] MEDS: VENLAFAXINE XR 37.5 MG CAPSULE PO SCH (08:33)
[2019-05-31] MEDS: ASPIRIN EC 81 MG TABLET PO SCH (08:33)
[2019-05-31] MEDS: SKIN HEALING OINT (AQUAPHOR) 50 GM TUBE TOP SCH (08:35)
[2019-05-31] MEDS: SILVER SULFADIAZINE 1% CREAM 25 GM TUBE TOP SCH (08:35)
[2019-05-31] MEDS: traMADol 50 MG TABLET PO PRN (10:38)
[2019-06-01] MEDS: CLINDAMYCIN INJ 600 MG in PREMIX 1 EACH IV SCH ×4 (00:33→21:12)
[2019-06-01] MEDS: ALBUTEROL/IPRATROPIUM 3 ML NEB RESP TX SCH ×4 (00:40→19:34)
[2019-06-01 06:39] LABS: Calcium 8.6 MG/DL (8.5-10.1); Osmolality,Calculated 292.5 MOS/KG (273-304)
[2019-06-01] MEDS: ENOXAPARIN 40 MG/0.4 ML SYRINGE SUBCUT SCH (08:26)
[2019-06-01] MEDS: methylPREDNISolone SOD SUC 40 MG/1 ML VIAL IV SCH (08:26)
[2019-06-01] MEDS: SKIN HEALING OINT (AQUAPHOR) 50 GM TUBE TOP SCH (08:27)
[2019-06-01] MEDS: POTASSIUM CHLORIDE 20 MEQ TABLET PO SCH ×2 (08:27→21:13)
[2019-06-01] MEDS: FUROSEMIDE 40 MG/4 ML VIAL IV SCH ×2 (08:27→16:15)
[2019-06-01] MEDS: CHOLECALCIFEROL 1,000 UNIT TABLET PO SCH (08:27)
[2019-06-01] MEDS: VENLAFAXINE XR 37.5 MG CAPSULE PO SCH (08:28)
[2019-06-01] MEDS: TAMSULOSIN 0.4 MG CAPSULE PO SCH (08:28)
[2019-06-01] MEDS: ASPIRIN EC 81 MG TABLET PO SCH (08:28)
[2019-06-01] MEDS: SILVER SULFADIAZINE 1% CREAM 25 GM TUBE TOP SCH (08:28)
[2019-06-02] MEDS: ALBUTEROL/IPRATROPIUM 3 ML NEB RESP TX SCH ×4 (00:12→19:36)
[2019-06-02] MEDS: CLINDAMYCIN INJ 600 MG in PREMIX 1 EACH IV SCH ×3 (01:31→12:50)
[2019-06-02] MEDS: CHOLECALCIFEROL 1,000 UNIT TABLET PO SCH (08:23)
[2019-06-02] MEDS: ASPIRIN EC 81 MG TABLET PO SCH (08:23)
[2019-06-02] MEDS: POTASSIUM CHLORIDE 20 MEQ TABLET PO SCH ×2 (08:23→20:27)
[2019-06-02] MEDS: ENOXAPARIN 40 MG/0.4 ML SYRINGE SUBCUT SCH (08:24)
[2019-06-02] MEDS: TAMSULOSIN 0.4 MG CAPSULE PO SCH (08:24)
[2019-06-02] MEDS: SKIN HEALING OINT (AQUAPHOR) 50 GM TUBE TOP SCH (08:25)
[2019-06-02] MEDS: SILVER SULFADIAZINE 1% CREAM 25 GM TUBE TOP SCH (08:25)
[2019-06-02] MEDS: VENLAFAXINE XR 37.5 MG CAPSULE PO SCH (08:25)
[2019-06-02] MEDS: FUROSEMIDE 40 MG/4 ML VIAL IV SCH ×2 (08:26→16:16)
[2019-06-02] MEDS ORDERED: predniSONE 20 MG TABLET PO SCH (09:00)
[2019-06-02] MEDS ORDERED: DEXTROSE 50% 25 GM/50 ML VIAL IV PRN (12:19)
[2019-06-02] MEDS ORDERED: GLUCAGON 1 MG VIAL IM PRN (12:19)
[2019-06-02] MEDS: INSULIN REGULAR 100 UNIT/ML SUBCUT SCH ×2 (16:15→20:26)
[2019-06-02] MEDS: glyBURIDE 2.5 MG TABLET PO SCH (16:15)
[2019-06-03] MEDS: ALBUTEROL/IPRATROPIUM 3 ML NEB RESP TX SCH ×4 (01:16→20:04)
[2019-06-03] MEDS: CHOLECALCIFEROL 1,000 UNIT TABLET PO SCH (08:34)
[2019-06-03] MEDS: POTASSIUM CHLORIDE 20 MEQ TABLET PO SCH ×2 (08:34→20:43)
[2019-06-03] MEDS: ACETAMINOPHEN 325 MG TABLET PO PRN (08:34)
[2019-06-03] MEDS: glyBURIDE 2.5 MG TABLET PO SCH ×2 (08:35→16:16)
[2019-06-03] MEDS: TAMSULOSIN 0.4 MG CAPSULE PO SCH (08:35)
[2019-06-03] MEDS: VENLAFAXINE XR 37.5 MG CAPSULE PO SCH (08:35)
[2019-06-03] MEDS: ASPIRIN EC 81 MG TABLET PO SCH (08:35)
[2019-06-03] MEDS: INSULIN REGULAR 100 UNIT/ML SUBCUT SCH ×4 (08:35→20:41)
[2019-06-03] MEDS: ENOXAPARIN 40 MG/0.4 ML SYRINGE SUBCUT SCH (08:36)
[2019-06-03] MEDS: FUROSEMIDE 40 MG/4 ML VIAL IV SCH ×2 (10:02→16:16)
[2019-06-03] MEDS: SKIN HEALING OINT (AQUAPHOR) 50 GM TUBE TOP SCH (10:48)
[2019-06-03] MEDS: SILVER SULFADIAZINE 1% CREAM 25 GM TUBE TOP SCH (10:48)
[2019-06-03] MEDS ORDERED: TUBERCULIN SKIN TEST 0.1 ML SYRINGE INTRADERM ONE (17:08)
[2019-06-04] MEDS: ALBUTEROL/IPRATROPIUM 3 ML NEB RESP TX SCH ×4 (00:31→20:46)
[2019-06-04 05:39] LABS: Basophils # 0.1 10*3/uL (0.0-0.2); Basophils % 0.4 % (0.0-0.8); Eosinophils # 0.3 10*3/uL (0.0-0.87); Eosinophils % 2.8 % (0.00-10.9); Hematocrit 45.8 VOL% (42.0-52.0); Hemoglobin 14.7 GM/DL (14.0-18.0); Immature Granulocytes % 1.9 %; Immature Granulocytes Absolute 0.22 #; Lymphocytes % 17.5 % (21.2-54.2); Mean Corpuscular HGB Conc 32.1 GM/DL (32-36); Mean Corpuscular Volume 91.2 FL (87-102); Mean Platelet Volume 10.4 FL (9.6-12.0); Monocytes % 8.8 % (1.7-12.7); Neutrophils % 68.6 % (38.7-73.9); Platelet Count 385 T/CUMM (130-400); Red Blood Count 5.02 MC/CUMM (3.8-5.5); Red Cell Distribution Width 14.2 % (9.3-17.3); White Blood Count 11.7 T/CUMM (4-12)
[2019-06-04 06:05] LABS: Calcium 8.3 MG/DL (8.5-10.1); Osmolality,Calculated 288.2 MOS/KG (273-304)
[2019-06-04] MEDS: FUROSEMIDE 40 MG/4 ML VIAL IV SCH ×2 (09:20→17:33)
[2019-06-04] MEDS: glyBURIDE 2.5 MG TABLET PO SCH ×2 (09:20→17:33)
[2019-06-04] MEDS: TAMSULOSIN 0.4 MG CAPSULE PO SCH (09:20)
[2019-06-04] MEDS: VENLAFAXINE XR 37.5 MG CAPSULE PO SCH (09:20)
[2019-06-04] MEDS: POTASSIUM CHLORIDE 20 MEQ TABLET PO SCH ×2 (09:20→21:22)
[2019-06-04] MEDS: ASPIRIN EC 81 MG TABLET PO SCH (09:20)
[2019-06-04] MEDS: ENOXAPARIN 40 MG/0.4 ML SYRINGE SUBCUT SCH (09:21)
[2019-06-04] MEDS: CHOLECALCIFEROL 1,000 UNIT TABLET PO SCH (09:31)
[2019-06-04] MEDS: SKIN HEALING OINT (AQUAPHOR) 50 GM TUBE TOP SCH (09:31)
[2019-06-04] MEDS: SILVER SULFADIAZINE 1% CREAM 25 GM TUBE TOP SCH (09:31)
[2019-06-04] MEDS: INSULIN REGULAR 100 UNIT/ML SUBCUT SCH ×4 (09:32→21:23)
[2019-06-04] MEDS: ACETAMINOPHEN 325 MG TABLET PO PRN ×2 (12:06→21:22)
[2019-06-05] MEDS: ALBUTEROL/IPRATROPIUM 3 ML NEB RESP TX SCH ×4 (00:25→20:02)
[2019-06-05] MEDS: ENOXAPARIN 40 MG/0.4 ML SYRINGE SUBCUT SCH (09:20)
[2019-06-05] MEDS: CHOLECALCIFEROL 1,000 UNIT TABLET PO SCH (09:21)
[2019-06-05] MEDS: POTASSIUM CHLORIDE 20 MEQ TABLET PO SCH ×2 (09:21→20:54)
[2019-06-05] MEDS: INSULIN REGULAR 100 UNIT/ML SUBCUT SCH ×4 (09:21→20:54)
[2019-06-05] MEDS: glyBURIDE 2.5 MG TABLET PO SCH ×2 (09:21→16:57)
[2019-06-05] MEDS: TAMSULOSIN 0.4 MG CAPSULE PO SCH (09:21)
[2019-06-05] MEDS: ASPIRIN EC 81 MG TABLET PO SCH (09:22)
[2019-06-05] MEDS: VENLAFAXINE XR 37.5 MG CAPSULE PO SCH (09:22)
[2019-06-05] MEDS: SKIN HEALING OINT (AQUAPHOR) 50 GM TUBE TOP SCH (09:22)
[2019-06-05] MEDS: SILVER SULFADIAZINE 1% CREAM 25 GM TUBE TOP SCH (09:22)
[2019-06-05] MEDS: FUROSEMIDE 40 MG/4 ML VIAL IV SCH ×2 (09:22→16:57)
[2019-06-06] MEDS: ALBUTEROL/IPRATROPIUM 3 ML NEB RESP TX SCH ×4 (00:58→19:14)
[2019-06-06] MEDS: ENOXAPARIN 40 MG/0.4 ML SYRINGE SUBCUT SCH (08:43)
[2019-06-06] MEDS: TAMSULOSIN 0.4 MG CAPSULE PO SCH (08:43)
[2019-06-06] MEDS: ASPIRIN EC 81 MG TABLET PO SCH (08:43)
[2019-06-06] MEDS: FUROSEMIDE 40 MG/4 ML VIAL IV SCH ×2 (08:43→16:21)
[2019-06-06] MEDS: POTASSIUM CHLORIDE 20 MEQ TABLET PO SCH ×2 (08:43→20:28)
[2019-06-06] MEDS: VENLAFAXINE XR 37.5 MG CAPSULE PO SCH (08:44)
[2019-06-06] MEDS: CHOLECALCIFEROL 1,000 UNIT TABLET PO SCH (08:44)
[2019-06-06] MEDS: glyBURIDE 2.5 MG TABLET PO SCH ×2 (08:44→16:21)
[2019-06-06] MEDS: INSULIN REGULAR 100 UNIT/ML SUBCUT SCH ×4 (08:58→20:28)
[2019-06-06] MEDS: SILVER SULFADIAZINE 1% CREAM 25 GM TUBE TOP SCH (15:52)
[2019-06-06] MEDS: SKIN HEALING OINT (AQUAPHOR) 50 GM TUBE TOP SCH (15:52)
[2019-06-07] MEDS: ALBUTEROL/IPRATROPIUM 3 ML NEB RESP TX SCH ×4 (00:49→19:56)
[2019-06-07] MEDS: FUROSEMIDE 40 MG/4 ML VIAL IV SCH ×2 (09:17→17:58)
[2019-06-07] MEDS: ENOXAPARIN 40 MG/0.4 ML SYRINGE SUBCUT SCH (09:17)
[2019-06-07] MEDS: glyBURIDE 2.5 MG TABLET PO SCH ×2 (09:18→17:57)
[2019-06-07] MEDS: TAMSULOSIN 0.4 MG CAPSULE PO SCH (09:18)
[2019-06-07] MEDS: VENLAFAXINE XR 37.5 MG CAPSULE PO SCH (09:18)
[2019-06-07] MEDS: POTASSIUM CHLORIDE 20 MEQ TABLET PO SCH ×2 (09:18→20:11)
[2019-06-07] MEDS: CHOLECALCIFEROL 1,000 UNIT TABLET PO SCH (09:18)
[2019-06-07] MEDS: ASPIRIN EC 81 MG TABLET PO SCH (09:18)
[2019-06-07] MEDS: INSULIN REGULAR 100 UNIT/ML SUBCUT SCH ×4 (09:19→20:11)
[2019-06-07] MEDS: SILVER SULFADIAZINE 1% CREAM 25 GM TUBE TOP SCH (09:23)
[2019-06-07] MEDS: SKIN HEALING OINT (AQUAPHOR) 50 GM TUBE TOP SCH (09:23)
[2019-06-08] MEDS: ALBUTEROL/IPRATROPIUM 3 ML NEB RESP TX SCH ×4 (00:10→19:31)
[2019-06-08 05:36] LABS: Basophils % 0.4 % (0.0-0.8); Eosinophils # 0.3 10*3/uL (0.0-0.87); Eosinophils % 2.5 % (0.00-10.9); Hematocrit 45.9 VOL% (42.0-52.0); Hemoglobin 14.3 GM/DL (14.0-18.0); Immature Granulocytes % 0.7 %; Immature Granulocytes Absolute 0.08 #; Lymphocytes # 1.4 10*3/uL (1.4-4.0); Lymphocytes % 12.6 % (21.2-54.2); Mean Corpuscular HGB Conc 31.2 GM/DL (32-36); Mean Corpuscular Volume 92.5 FL (87-102); Mean Platelet Volume 10.7 FL (9.6-12.0); Monocytes % 9.7 % (1.7-12.7); Neutrophils % 74.1 % (38.7-73.9); Platelet Count 297 T/CUMM (130-400); Red Blood Count 4.96 MC/CUMM (3.8-5.5); Red Cell Distribution Width 14.2 % (9.3-17.3)
[2019-06-08] MEDS: FUROSEMIDE 40 MG/4 ML VIAL IV SCH ×2 (08:55→17:19)
[2019-06-08] MEDS: glyBURIDE 2.5 MG TABLET PO SCH ×2 (08:56→17:19)
[2019-06-08] MEDS: POTASSIUM CHLORIDE 20 MEQ TABLET PO SCH ×2 (08:56→21:07)
[2019-06-08] MEDS: SILVER SULFADIAZINE 1% CREAM 25 GM TUBE TOP SCH (08:56)
[2019-06-08] MEDS: ASPIRIN EC 81 MG TABLET PO SCH (08:56)
[2019-06-08] MEDS: ENOXAPARIN 40 MG/0.4 ML SYRINGE SUBCUT SCH (08:56)
[2019-06-08] MEDS: SKIN HEALING OINT (AQUAPHOR) 50 GM TUBE TOP SCH (08:56)
[2019-06-08] MEDS: INSULIN REGULAR 100 UNIT/ML SUBCUT SCH ×4 (08:56→21:08)
[2019-06-08] MEDS: VENLAFAXINE XR 37.5 MG CAPSULE PO SCH (08:57)
[2019-06-08] MEDS: TAMSULOSIN 0.4 MG CAPSULE PO SCH (08:57)
[2019-06-08] MEDS: CHOLECALCIFEROL 1,000 UNIT TABLET PO SCH (08:57)
[2019-06-09] MEDS: ALBUTEROL/IPRATROPIUM 3 ML NEB RESP TX SCH ×4 (00:28→19:39)
[2019-06-09] MEDS: ASPIRIN EC 81 MG TABLET PO SCH (08:31)
[2019-06-09] MEDS: VENLAFAXINE XR 37.5 MG CAPSULE PO SCH (08:31)
[2019-06-09] MEDS: POTASSIUM CHLORIDE 20 MEQ TABLET PO SCH ×2 (08:31→21:54)
[2019-06-09] MEDS: glyBURIDE 2.5 MG TABLET PO SCH ×2 (08:31→16:41)
[2019-06-09] MEDS: TAMSULOSIN 0.4 MG CAPSULE PO SCH (08:31)
[2019-06-09] MEDS: CHOLECALCIFEROL 1,000 UNIT TABLET PO SCH (08:31)
[2019-06-09] MEDS: INSULIN REGULAR 100 UNIT/ML SUBCUT SCH ×4 (08:31→21:54)
[2019-06-09] MEDS: FUROSEMIDE 40 MG/4 ML VIAL IV SCH ×2 (08:32→16:41)
[2019-06-09] MEDS: SKIN HEALING OINT (AQUAPHOR) 50 GM TUBE TOP SCH (08:32)
[2019-06-09] MEDS: ENOXAPARIN 40 MG/0.4 ML SYRINGE SUBCUT SCH (08:32)
[2019-06-09] MEDS: SILVER SULFADIAZINE 1% CREAM 25 GM TUBE TOP SCH (08:32)
[2019-06-10] MEDS: ALBUTEROL/IPRATROPIUM 3 ML NEB RESP TX SCH ×4 (00:04→19:50)
[2019-06-10] MEDS: INSULIN REGULAR 100 UNIT/ML SUBCUT SCH ×4 (07:55→21:15)
[2019-06-10] MEDS ORDERED: PERMETHRIN 5% CREAM 60 GM TUBE TOP ONE (08:00)
[2019-06-10] MEDS: ASPIRIN EC 81 MG TABLET PO SCH (08:46)
[2019-06-10] MEDS: ENOXAPARIN 40 MG/0.4 ML SYRINGE SUBCUT SCH (08:46)
[2019-06-10] MEDS: glyBURIDE 2.5 MG TABLET PO SCH ×2 (08:46→16:45)
[2019-06-10] MEDS: FUROSEMIDE 40 MG/4 ML VIAL IV SCH ×2 (08:46→16:45)
[2019-06-10] MEDS: POTASSIUM CHLORIDE 20 MEQ TABLET PO SCH ×2 (08:46→21:15)
[2019-06-10] MEDS: VENLAFAXINE XR 37.5 MG CAPSULE PO SCH (08:46)
[2019-06-10] MEDS: CHOLECALCIFEROL 1,000 UNIT TABLET PO SCH (08:46)
[2019-06-10] MEDS: TAMSULOSIN 0.4 MG CAPSULE PO SCH (08:46)
[2019-06-10] MEDS: SKIN HEALING OINT (AQUAPHOR) 50 GM TUBE TOP SCH (08:47)
[2019-06-10] MEDS: SILVER SULFADIAZINE 1% CREAM 25 GM TUBE TOP SCH (08:47)
[2019-06-10] MEDS: FUROSEMIDE 20 MG TABLET PO SCH ×2 (09:12→16:45)
[2019-06-10] MEDS: TRIAMCINOLONE 0.1% CREAM 15 GM TUBE TOP SCH ×2 (14:16→21:15)
[2019-06-11] MEDS: ALBUTEROL/IPRATROPIUM 3 ML NEB RESP TX SCH ×4 (01:47→19:45)
[2019-06-11] MEDS: INSULIN REGULAR 100 UNIT/ML SUBCUT SCH ×4 (08:24→20:54)
[2019-06-11] MEDS: TAMSULOSIN 0.4 MG CAPSULE PO SCH (09:20)
[2019-06-11] MEDS: FUROSEMIDE 20 MG TABLET PO SCH ×2 (09:20→16:56)
[2019-06-11] MEDS: POTASSIUM CHLORIDE 20 MEQ TABLET PO SCH ×2 (09:20→20:55)
[2019-06-11] MEDS: ENOXAPARIN 40 MG/0.4 ML SYRINGE SUBCUT SCH (09:20)
[2019-06-11] MEDS: ASPIRIN EC 81 MG TABLET PO SCH (09:20)
[2019-06-11] MEDS: CHOLECALCIFEROL 1,000 UNIT TABLET PO SCH (09:20)
[2019-06-11] MEDS: glyBURIDE 2.5 MG TABLET PO SCH ×2 (09:20→16:56)
[2019-06-11] MEDS: VENLAFAXINE XR 37.5 MG CAPSULE PO SCH (09:21)
[2019-06-11] MEDS: SKIN HEALING OINT (AQUAPHOR) 50 GM TUBE TOP SCH (14:52)
[2019-06-11] MEDS: TRIAMCINOLONE 0.1% CREAM 15 GM TUBE TOP SCH ×3 (14:53→20:56)
[2019-06-11] MEDS: SILVER SULFADIAZINE 1% CREAM 25 GM TUBE TOP SCH (14:53)
[2019-06-12] MEDS: ALBUTEROL/IPRATROPIUM 3 ML NEB RESP TX SCH ×4 (01:20→19:29)
[2019-06-12] MEDS: INSULIN REGULAR 100 UNIT/ML SUBCUT SCH ×4 (08:17→20:01)
[2019-06-12] MEDS: ENOXAPARIN 40 MG/0.4 ML SYRINGE SUBCUT SCH (10:10)
[2019-06-12] MEDS: POTASSIUM CHLORIDE 20 MEQ TABLET PO SCH ×2 (10:10→20:01)
[2019-06-12] MEDS: FUROSEMIDE 20 MG TABLET PO SCH ×2 (10:11→17:01)
[2019-06-12] MEDS: glyBURIDE 2.5 MG TABLET PO SCH ×2 (10:11→17:01)
[2019-06-12] MEDS: CHOLECALCIFEROL 1,000 UNIT TABLET PO SCH (10:11)
[2019-06-12] MEDS: ASPIRIN EC 81 MG TABLET PO SCH (10:11)
[2019-06-12] MEDS: TAMSULOSIN 0.4 MG CAPSULE PO SCH (10:12)
[2019-06-12] MEDS: VENLAFAXINE XR 37.5 MG CAPSULE PO SCH (10:12)
[2019-06-12] MEDS: SKIN HEALING OINT (AQUAPHOR) 50 GM TUBE TOP SCH (10:14)
[2019-06-12] MEDS: SILVER SULFADIAZINE 1% CREAM 25 GM TUBE TOP SCH (10:14)
[2019-06-12] MEDS: TRIAMCINOLONE 0.1% CREAM 15 GM TUBE TOP SCH ×3 (10:14→20:02)
[2019-06-13] MEDS: ALBUTEROL/IPRATROPIUM 3 ML NEB RESP TX SCH ×4 (01:25→19:32)
[2019-06-13] MEDS: SILVER SULFADIAZINE 1% CREAM 25 GM TUBE TOP SCH (08:07)
[2019-06-13] MEDS: glyBURIDE 2.5 MG TABLET PO SCH ×2 (08:07→16:26)
[2019-06-13] MEDS: INSULIN REGULAR 100 UNIT/ML SUBCUT SCH ×4 (08:07→21:05)
[2019-06-13] MEDS: VENLAFAXINE XR 37.5 MG CAPSULE PO SCH (08:49)
[2019-06-13] MEDS: POTASSIUM CHLORIDE 20 MEQ TABLET PO SCH ×2 (08:49→21:06)
[2019-06-13] MEDS: ASPIRIN EC 81 MG TABLET PO SCH (08:49)
[2019-06-13] MEDS: FUROSEMIDE 20 MG TABLET PO SCH ×2 (08:49→16:56)
[2019-06-13] MEDS: TAMSULOSIN 0.4 MG CAPSULE PO SCH (08:50)
[2019-06-13] MEDS: ENOXAPARIN 40 MG/0.4 ML SYRINGE SUBCUT SCH (08:51)
[2019-06-13] MEDS: CHOLECALCIFEROL 1,000 UNIT TABLET PO SCH (08:51)
[2019-06-13] MEDS: SKIN HEALING OINT (AQUAPHOR) 50 GM TUBE TOP SCH (08:51)
[2019-06-13] MEDS: TRIAMCINOLONE 0.1% CREAM 15 GM TUBE TOP SCH ×3 (08:51→21:06)
[2019-06-14] MEDS: ALBUTEROL/IPRATROPIUM 3 ML NEB RESP TX SCH ×3 (02:07→13:40)
[2019-06-14] MEDS: INSULIN REGULAR 100 UNIT/ML SUBCUT SCH ×3 (07:15→17:09)
[2019-06-14] MEDS: FUROSEMIDE 20 MG TABLET PO SCH ×2 (08:31→16:24)
[2019-06-14] MEDS: CHOLECALCIFEROL 1,000 UNIT TABLET PO SCH (08:31)
[2019-06-14] MEDS: ASPIRIN EC 81 MG TABLET PO SCH (08:31)
[2019-06-14] MEDS: POTASSIUM CHLORIDE 20 MEQ TABLET PO SCH (08:31)
[2019-06-14] MEDS: glyBURIDE 2.5 MG TABLET PO SCH ×2 (08:31→16:24)
[2019-06-14] MEDS: VENLAFAXINE XR 37.5 MG CAPSULE PO SCH (08:31)
[2019-06-14] MEDS: SKIN HEALING OINT (AQUAPHOR) 50 GM TUBE TOP SCH (08:32)
[2019-06-14] MEDS: TRIAMCINOLONE 0.1% CREAM 15 GM TUBE TOP SCH ×2 (08:32→16:24)
[2019-06-14] MEDS: ENOXAPARIN 40 MG/0.4 ML SYRINGE SUBCUT SCH (08:32)
[2019-06-14] MEDS: SILVER SULFADIAZINE 1% CREAM 25 GM TUBE TOP SCH (08:33)
[2019-06-14] MEDS: TAMSULOSIN 0.4 MG CAPSULE PO SCH (08:55)
[2019-06-14 15:32] VITALS: BP 113/78
== END 2019-06-14 17:20 | disposition hospice, home (50) | DRG 291 ==
LOC: EDBD → EDUNIT# → N.ED 00:35 → N.EDINP 00:35 → N.5E 09:03 → SUATTDRO 15:28
PROVIDERS: ADMIT Hospitalist; ATTEND Internal Medicine